=== PATIENT | female | born 1970 | race Caucasian/White ===

== ENCOUNTER 2019-06-13 13:17 | Observation (INO) | payer OTHER ==
--- OUTSIDE RECORDS SUMMARY | 2019-06-13 13:22 | XMS REPORT ---
:1970 [facility] [address] [place] [address] Care Team Providers Name Role Phone DR KLEVER MIRANDA Unavailable Unavailable NATALY, DR WINTER Lim Unavailable Unavailable KRISHNA, DR GANT Unavailable Unavailable CATALINA, DR MCCARTHY Unavailable Unavailable JORGE LUIS, DR GROSSMAN Unavailable Unavailable NATALY, DR DOE Unavailable Unavailable CARRIE, DR NUÑEZ Unavailable Unavailable EDEL, DR TATY Beltran Unavailable Unavailable Problems This patient has no known problems. Allergies, Adverse Reactions, Alerts This patient has no known allergies or adverse reactions. Medications This patient has no known medications. Encounters Start End Encounter Admission Attending Care Care Encounter Date/Time Date/Time Type Type Clinicians Facility Department ID 2018-01-10 Inpatient KLEVER GIVENS [facility] [id number] 12:30:00 2017-08-22 Inpatient KLEVER GIVENS [facility] [id number] 10:30:00 2019-03-09 2019-03-09 Emergency WINTER TORO [facility] [id number] 10:42:00 12:25:00 2018-12-04 2018-12-04 Outpatient Errol KELLER [facility] [id number] 09:00:00 09:00:00 STALIN 2018-07-30 2018-07-30 Outpatient Errol KELLER [facility] [id number] 07:59:00 10:30:00 STALIN 2018-05-26 2018-05-26 Emergency FABIO WADSWORTH [facility] [id number] 12:50:00 14:10:00 2018-04-24 2018-04-24 Outpatient Errol KANG [facility] [id number] 08:45:00 08:45:00 CHAUNCEY 2018-03-15 2018-03-15 Outpatient Errol KANG, [facility] [id number] 13:00:00 13:00:00 CHAUNCEY 2018-03-01 2018-03-01 Emergency E NADER INGRAM [facility] [id number] 14:10:00 16:00:00 2018-02-25 2018-02-28 Inpatient E CARRIE [facility] [id number] 22:17:00 14:15:00 JOAQUIN 2017-10-23 2017-10-23 Emergency E WINTER INGRAM [facility] [id number] 16:59:00 19:50:00 2017-10-17 2017-10-17 Outpatient C KLEVER MIRANDA [facility] [id number] 09:59:00 23:59:00 2017-10-16 2017-10-16 Outpatient KLEVER GIVENS [facility] [id number] 10:59:00 23:59:00 2017-10-12 2017-10-13 Outpatient E EDEL [facility] [id number] 13:06:00 18:54:00 MEHJABIN Results Test Description Test Time Test Comments Text Results Atomic Results Result Comments COMPREHENSIVE METABOLIC WALTON 2019-03-09 11:58:00 Test Item Value Reference Range Comments GLUCOSE (test code=06D) 101 mg/dL 75-100 SODIUM (test code=01A) 137 mmol/L 136-145 POTASSIUM (test code=01B) 4.4 mmol/L 3.6-5.1 CHLORIDE (test code=04A) 106 mmol/L 98-107 CO2 (test code=02A) 27 mmol/L 22-32 ANION GAP (test code=ANG) 8.4 mmol/L BUN (test code=05D) 9 mg/dL 7-18 CREATININE (test code=03E) 0.9 mg/dL 0.4-1.1 BUN/CREA (test code=BCR) 11 12-20 CALCIUM (test code=09D) 8.6 mg/dL 8.3-9.5 BILI TOTAL (test code=11A) 0.2 mg/dL 0.2-1.0 PROTEIN (test code=07D) 7.2 g/dL 6.4-8.2 ALBUMIN (test code=08D) 3.4 g/dL 3.5-4.8 GLOBULIN (test code=GLB) 3.8 g/dL 1.5-3.8 ALB/GLOB (test code=AGRR) 0.9 1.0-2.6 ALK PHOS (test code=35A) 76 IU/L 42-121 AST (test code=30A) 22 IU/L <=42 ALT (test code=31A) 29 IU/L <=78 [id number] 11:55:00 Test Item Value Reference Range Comments CPK (test code=32A) 275 IU/L 26-192 AMYLASE AND [id number] 11:55:00 Test Item Value Reference Range Comments AMYLASE (test code=10A) 32 U/L 28-100 LIPASE (test code=60A) 139 IU/L 73-393 TROPONIN [id number] 11:43:00 Test Item Value Reference Range Comments TROPONIN I (test code=A84) <0.015 ng/mL 0.000-0.045 DRUGS OF [id number] 11:40:00 Test Item Value Reference Range Comments DRUG SCRN (test code=HDOA) URINE DRUG SCREEN This is an unconfirmed screening result and should not be used for non-medical purposes CANNABINOD (test code=88C) Negative NEGATIVE AMPHETAMINE (test code=84A) Negative NEGATIVE BENZODIAZP (test code=86A) Negative NEGATIVE BARBITURAT (test code=85A) Negative NEGATIVE OPIATES (test code=92B) Negative NEGATIVE COCAINE (test code=87A) Negative NEGATIVE PHENCYCLID (test code=66A) Negative NEGATIVE METHADONE (test code=64A) Negative NEGATIVE DOAH (test code=DOAH.) URINE DRUG SCREEN Cut-off values are as follows: Cannabinoids 50 ng/mL Cocaine 300 ng/mL Amphetamines 1000 ng/mL Phencyclidine 25 ng/mL Benzodiazepines 200 ng.mL Methadone 300 ng/mL Barbiturates 200 ng/mL Opiates 2000 ng/mL SERUM [id number] 11:34:00 Test Item Value Reference Range Comments PREG SRM (test code=PGS) NEGATIVE NEGATIVE PRO TIME AND [id number] 11:33:00 Test Item Value Reference Range Comments PT (test code=TT) 11.2 s 9.8-13.6 INR (test code=INR) 1.0 INRH (test code=INRH) SUGGESTED THERAPEUTIC RANGE FOR INR: 2.5 - 3.5 For Patients with Prosthetic Valves or Patients with recurrent Thromboembolic Events 2.0 - 3.0 For Most Other Applications PTT (test code=PTT) 31.5 s 20.2-38.0 PTTH (test code=PTTH) To monitor the effectiveness of heparin, we offer the Anti-Xa (Heparin Assay). It can be used for either unfractionated or LMW Heparin. Order Code is ANTI-XA XR CHEST 1 VIEW [id number] 11:32:20EXAM: Portable chest x-rayDictation location: [id number]: Chest x-ray on 05/26/18INDICATION: chestpainDISCUSSION: Mild elevation of the right hemidiaphragm and linear scarring at the right lungbase is unchanged. No consolidation or pleural effusion is seen. Thecardiomediastinal silhouette is within normal limits. No acute bonyabnormalities are identified.IMPRESSION: No evidence of acute abnormality. There is unchanged mild elevationof the right hemidiaphragm and linear scarring at the right lung base.CBC (INCLUDES AUTOMATED DIFFERENTIAL)2019-03-09 11:26:00 Test Item Value Reference Range Comments WBC (test code=WBC) 8.6 10\S\3/uL 4.5-11.0 RBC (test code=RBC) 4.72 10\S\6/uL 4.20-5.60 HGB (test code=HBG) 13.1 g/dL 12.0-15.5 HCT (test code=HCT) 40.0 % 35.0-44.0 MCV (test code=MCV) 84.7 fL 81.0-99.0 MCH (test code=MCH) 27.8 pg 27.0-31.0 MCHC (test code=MCHC) 32.8 g/dL 32.0-36.0 RDW (test code=RDW) 14.6 % 11.5-14.5 PLT (test code=PLT) 268 10\S\3/uL 130-400 MPV (test code=MPV) 9.3 fL 9.4-12.4 NEUTROP # (test code=NE#) 4.4 10\S\3/uL 1.6-8.0 LYMPH # (test code=LY#) 2.7 10\S\3/uL 1.1-3.5 MONOCYTE # (test code=MO#) 0.9 10\S\3/uL 0.0-1.1 EOSINOPH # (test code=EO#) 0.5 10\S\3/uL 0.0-0.7 BASOPHIL # (test code=BA#) 0.1 10\S\3/uL 0.0-0.3 IG # (test code=IG#) 0.03 10\S\3/uL 0.00-0.06 NRBC # (test code=NRBC#) 0.00 10\S\3/uL 0.00-0.01 NEUTROPH % (test code=NE%) 51.1 % 35.0-73.0 LYMPH % (test code=LY%) 31.3 % 20.0-55.0 MONO % (test code=MO%) 10.9 % 2.5-10.0 EOSINOPH % (test code=EO%) 5.5 % 0.0-5.0 BASOPHIL % (test code=BA%) 0.8 % 0.0-2.0 IG % (test code=IG%) 0.4 % 0.0-0.8 NRBC% (test code=NRBC%) 0.0 % 0.0-0.2 MANDIFF (test code=MDIFF) NO NO RBC MORPH (test code=RBCMOR) NORMAL COMPREHENSIVE METABOLIC [id number] 09:42:00 Test Item Value Reference Range Comments GLUCOSE (test code=06D) 102 mg/dL 75-100 SODIUM (test code=01A) 140 mmol/L 136-145 POTASSIUM (test code=01B) 4.0 mmol/L 3.6-5.1 CHLORIDE (test code=04A) 110 mmol/L 98-107 CO2 (test code=02A) 21 mmol/L 22-32 ANION GAP (test code=ANG) 13.0 mmol/L BUN (test code=05D) 8 mg/dL 7-18 CREATININE (test code=03E) 0.7 mg/dL 0.4-1.1 BUN/CREA (test code=BCR) 12 12-20 CALCIUM (test code=09D) 8.9 mg/dL 8.3-9.5 BILI TOTAL (test code=11A) 0.3 mg/dL 0.2-1.0 PROTEIN (test code=07D) 7.4 g/dL 6.4-8.2 ALBUMIN (test code=08D) 3.6 g/dL 3.5-4.8 GLOBULIN (test code=GLB) 3.8 g/dL 1.5-3.8 ALB/GLOB (test code=AGRR) 0.9 1.0-2.6 ALK PHOS (test code=35A) 64 IU/L 42-121 AST (test code=30A) 22 IU/L <=42 ALT (test code=31A) 28 IU/L <=78 PRO TIME AND [id number] 09:37:00 Test Item Value Reference Range Comments PT (test code=TT) 11.4 s 9.8-13.6 INR (test code=INR) 1.0 INRH (test code=INRH) SUGGESTED THERAPEUTIC RANGE FOR INR: 2.5 - 3.5 For Patients with Prosthetic Valves or Patients with recurrent Thromboembolic Events 2.0 - 3.0 For Most Other Applications PTT (test code=PTT) 29.1 s 20.2-38.0 PTTH (test code=PTTH) To monitor the effectiveness of heparin, we offer the Anti-Xa (Heparin Assay). It can be used for either unfractionated or LMW Heparin. Order Code is ANTI-XA CBC (INCLUDES AUTOMATED DIFFERENTIAL)2018-07-30 09:29:00 Test Item Value Reference Range Comments WBC (test code=WBC) 7.7 10\S\3/uL 4.5-11.0 RBC (test code=RBC) 5.00 10\S\6/uL 4.20-5.60 HGB (test code=HBG) 13.9 g/dL 12.0-15.5 HCT (test code=HCT) 41.6 % 35.0-44.0 MCV (test code=MCV) 83.2 fL 81.0-99.0 MCH (test code=MCH) 27.8 pg 27.0-31.0 MCHC (test code=MCHC) 33.4 g/dL 32.0-36.0 RDW (test code=RDW) 14.8 % 11.5-14.5 PLT (test code=PLT) 272 10\S\3/uL 130-400 MPV (test code=MPV) 9.5 fL 9.4-12.4 NEUTROP # (test code=NE#) 4.4 10\S\3/uL 1.6-8.0 LYMPH # (test code=LY#) 2.4 10\S\3/uL 1.1-3.5 MONOCYTE # (test code=MO#) 0.6 10\S\3/uL 0.0-1.1 EOSINOPH # (test code=EO#) 0.2 10\S\3/uL 0.0-0.7 BASOPHIL # (test code=BA#) 0.1 10\S\3/uL 0.0-0.3 IG # (test code=IG#) 0.01 10\S\3/uL 0.00-0.06 NRBC # (test code=NRBC#) 0.00 10\S\3/uL 0.00-0.01 NEUTROPH % (test code=NE%) 57.3 % 35.0-73.0 LYMPH % (test code=LY%) 31.1 % 20.0-55.0 MONO % (test code=MO%) 7.6 % 2.5-10.0 EOSINOPH % (test code=EO%) 3.1 % 0.0-5.0 BASOPHIL % (test code=BA%) 0.8 % 0.0-2.0 IG % (test code=IG%) 0.1 % 0.0-0.8 NRBC% (test code=NRBC%) 0.0 % 0.0-0.2 MANDIFF (test code=MDIFF) NO NO RBC MORPH (test code=RBCMOR) NORMAL URINE [id number] 09:13:00 Test Item Value Reference Range Comments PREG UR (test code=PGU) NEGATIVE NEGATIVE BRAIN NATRIURETIC [id number] 13:43:00 Test Item Value Reference Range Comments proBNP (test code=PBNP) 155 pg/mL 0-125 AMYLASE AND [id number] 13:40:00 Test Item Value Reference Range Comments AMYLASE (test code=10A) 35 U/L 28-100 LIPASE (test code=60A) 197 IU/L 73-393 COMPREHENSIVE METABOLIC [id number] 13:40:00 Test Item Value Reference Range Comments GLUCOSE (test code=06D) 94 mg/dL 75-100 SODIUM (test code=01A) 137 mmol/L 136-145 POTASSIUM (test code=01B) 4.3 mmol/L 3.6-5.1 CHLORIDE (test code=04A) 108 mmol/L 98-107 CO2 (test code=02A) 23 mmol/L 22-32 ANION GAP (test code=ANG) 10.3 mmol/L BUN (test code=05D) 14 mg/dL 7-18 CREATININE (test code=03E) 0.8 mg/dL 0.4-1.1 BUN/CREA (test code=BCR) 17 12-20 CALCIUM (test code=09D) 8.6 mg/dL 8.3-9.5 BILI TOTAL (test code=11A) 0.4 mg/dL 0.2-1.0 PROTEIN (test code=07D) 7.4 g/dL 6.4-8.2 ALBUMIN (test code=08D) 3.3 g/dL 3.5-4.8 GLOBULIN (test code=GLB) 4.1 g/dL 1.5-3.8 ALB/GLOB (test code=AGRR) 0.8 1.0-2.6 ALK PHOS (test code=35A) 74 IU/L 42-121 AST (test code=30A) 28 IU/L <=42 ALT (test code=31A) 30 IU/L <=78 [id number] 13:40:00 Test Item Value Reference Range Comments CPK (test code=32A) 297 IU/L 26-192 TROPONIN [id number] 13:40:00 Test Item Value Reference Range Comments TROPONIN I (test code=A84) <0.015 ng/mL 0.000-0.045 XR CHEST 1 VIEW [id number] 13:35:17Location code: A 1Chest 1 viewIndication: Chest.Comparison: 09/26/17. 03/01/18.Findings:The cardiac silhouette is magnified. Mediastinal structures are undisplaced. Nopleural effusion. Small scarring at the right base unchanged since 09/26/17.Lungs otherwise clear. Bone is unremarkable.Impression: No evidence of acute pathology.PRO TIME AND [id number] 13:29:00 Test Item Value Reference Range Comments PT (test code=TT) 11.0 s 9.8-13.6 INR (test code=INR) 1.0 INRH (test code=INRH) SUGGESTED THERAPEUTIC RANGE FOR INR: 2.5 - 3.5 For Patients with Prosthetic Valves or Patients with recurrent Thromboembolic Events 2.0 - 3.0 For Most Other Applications PTT (test code=PTT) 26.7 s 20.2-38.0 PTTH (test code=PTTH) To monitor the effectiveness of heparin, we offer the Anti-Xa (Heparin Assay). It can be used for either unfractionated or LMW Heparin. Order Code is ANTI-XA SERUM [id number] 13:25:00 Test Item Value Reference Range Comments PREG SRM (test code=PGS) NEGATIVE NEGATIVE CBC (INCLUDES AUTOMATED DIFFERENTIAL)2018-05-26 13:19:00 Test Item Value Reference Range Comments WBC (test code=WBC) 8.5 10\S\3/uL 4.5-11.0 RBC (test code=RBC) 4.49 10\S\6/uL 4.20-5.60 HGB (test code=HBG) 12.6 g/dL 12.0-15.5 HCT (test code=HCT) 37.9 % 35.0-44.0 MCV (test code=MCV) 84.4 fL 81.0-99.0 MCH (test code=MCH) 28.1 pg 27.0-31.0 MCHC (test code=MCHC) 33.2 g/dL 32.0-36.0 RDW (test code=RDW) 13.9 % 11.5-14.5 PLT (test code=PLT) 270 10\S\3/uL 130-400 MPV (test code=MPV) 9.5 fL 9.4-12.4 NEUTROP # (test code=NE#) 4.8 10\S\3/uL 1.6-8.0 LYMPH # (test code=LY#) 2.7 10\S\3/uL 1.1-3.5 MONOCYTE # (test code=MO#) 0.7 10\S\3/uL 0.0-1.1 EOSINOPH # (test code=EO#) 0.2 10\S\3/uL 0.0-0.7 BASOPHIL # (test code=BA#) 0.1 10\S\3/uL 0.0-0.3 IG # (test code=IG#) 0.02 10\S\3/uL 0.00-0.06 NRBC # (test code=NRBC#) 0.00 10\S\3/uL 0.00-0.01 NEUTROPH % (test code=NE%) 56.9 % 35.0-73.0 LYMPH % (test code=LY%) 31.8 % 20.0-55.0 MONO % (test code=MO%) 7.9 % 2.5-10.0 EOSINOPH % (test code=EO%) 2.4 % 0.0-5.0 BASOPHIL % (test code=BA%) 0.8 % 0.0-2.0 IG % (test code=IG%) 0.2 % 0.0-0.8 NRBC% (test code=NRBC%) 0.0 % 0.0-0.2 MANDIFF (test code=MDIFF) NO NO RBC MORPH (test code=RBCMOR) NORMAL BRAIN NATRIURETIC [id number] 15:06:00 Test Item Value Reference Range Comments proBNP (test code=PBNP) 448 pg/mL 0-125 CARDIAC [id number] 15:04:00 Test Item Value Reference Range Comments TROPONIN I (test code=A84) <0.015 ng/mL 0.000-0.045 CKMB (test code=A49) 2.9 ng/mL <=3.6 CPK (test code=32A) 180 IU/L 26-192 COMPREHENSIVE METABOLIC [id number] 15:02:00 Test Item Value Reference Range Comments GLUCOSE (test code=06D) 86 mg/dL 75-100 SODIUM (test code=01A) 135 mmol/L 136-145 POTASSIUM (test code=01B) 3.9 mmol/L 3.6-5.1 CHLORIDE (test code=04A) 102 mmol/L 98-107 CO2 (test code=02A) 23 mmol/L 22-32 ANION GAP (test code=ANG) 13.9 mmol/L BUN (test code=05D) 10 mg/dL 7-18 CREATININE (test code=03E) 0.7 mg/dL 0.4-1.1 BUN/CREA (test code=BCR) 15 12-20 CALCIUM (test code=09D) 8.9 mg/dL 8.3-9.5 BILI TOTAL (test code=11A) 0.3 mg/dL 0.2-1.0 PROTEIN (test code=07D) 7.5 g/dL 6.4-8.2 ALBUMIN (test code=08D) 3.7 g/dL 3.5-4.8 GLOBULIN (test code=GLB) 3.8 g/dL 1.5-3.8 ALB/GLOB (test code=AGRR) 1.0 1.0-2.6 ALK PHOS (test code=35A) 79 IU/L 42-121 AST (test code=30A) 14 IU/L <=42 ALT (test code=31A) 28 IU/L <=78 PRO TIME AND [id number] 14:53:00 Test Item Value Reference Range Comments PT (test code=TT) 11.5 s 9.8-13.6 INR (test code=INR) 1.0 INRH (test code=INRH) SUGGESTED THERAPEUTIC RANGE FOR INR: 2.5 - 3.5 For Patients with Prosthetic Valves or Patients with recurrent Thromboembolic Events 2.0 - 3.0 For Most Other Applications PTT (test code=PTT) 26.5 s 20.2-38.0 PTTH (test code=PTTH) To monitor the effectiveness of heparin, we offer the Anti-Xa (Heparin Assay). It can be used for either unfractionated or LMW Heparin. Order Code is ANTI-XA CBC (INCLUDES AUTOMATED DIFFERENTIAL)2018-03-01 14:45:00 Test Item Value Reference Range Comments WBC (test code=WBC) 10.8 10\S\3/uL 4.5-11.0 RBC (test code=RBC) 4.90 10\S\6/uL 4.20-5.60 HGB (test code=HBG) 14.1 g/dL 12.0-15.5 HCT (test code=HCT) 42.0 % 35.0-44.0 MCV (test code=MCV) 85.7 fL 81.0-99.0 MCH (test code=MCH) 28.8 pg 27.0-31.0 MCHC (test code=MCHC) 33.6 g/dL 32.0-36.0 RDW (test code=RDW) 13.1 % 11.5-14.5 PLT (test code=PLT) 250 10\S\3/uL 130-400 MPV (test code=MPV) 9.4 fL 9.4-12.4 NEUTROP # (test code=NE#) 6.4 10\S\3/uL 1.6-8.0 LYMPH # (test code=LY#) 3.1 10\S\3/uL 1.1-3.5 MONOCYTE # (test code=MO#) 0.9 10\S\3/uL 0.0-1.1 EOSINOPH # (test code=EO#) 0.2 10\S\3/uL 0.0-0.7 BASOPHIL # (test code=BA#) 0.1 10\S\3/uL 0.0-0.3 IG # (test code=IG#) 0.03 10\S\3/uL 0.00-0.06 NRBC # (test code=NRBC#) 0.00 10\S\3/uL 0.00-0.01 NEUTROPH % (test code=NE%) 59.6 % 35.0-73.0 LYMPH % (test code=LY%) 28.9 % 20.0-55.0 MONO % (test code=MO%) 8.5 % 2.5-10.0 EOSINOPH % (test code=EO%) 2.0 % 0.0-5.0 BASOPHIL % (test code=BA%) 0.7 % 0.0-2.0 IG % (test code=IG%) 0.3 % 0.0-0.8 NRBC% (test code=NRBC%) 0.0 % 0.0-0.2 MANDIFF (test code=MDIFF) NO NO RBC MORPH (test code=RBCMOR) NORMAL XR CHEST 1 VIEW [id number] 14:38:19Portable AP chest, 1 viewLocation Code: [id number] HISTORY: Chest painCOMPARISON: CT dated 02/26/2018 02/25/2018, 10/23/2017COMMENT: Mild atelectasis versus scarring within the right lung base is stable. Leftchest is clear. The cardiomediastinal silhouette is stable. The bones areintact.IMPRESSION: Stable chest with no acute abnormalityBASIC METABOLIC [id number] 05:24:00 Test Item Value Reference Range Comments GLUCOSE (test code=06D) 87 mg/dL 75-100 SODIUM (test code=01A) 138 mmol/L 136-145 POTASSIUM (test code=01B) 4.0 mmol/L 3.6-5.1 CHLORIDE (test code=04A) 109 mmol/L 98-107 CO2 (test code=02A) 23 mmol/L 22-32 ANION GAP (test code=ANG) 10.0 mmol/L BUN (test code=05D) 12 mg/dL 7-18 CREATININE (test code=03E) 0.7 mg/dL 0.4-1.1 BUN/CREA (test code=BCR) 17 12-20 CALCIUM (test code=09D) 7.8 mg/dL 8.3-9.5 CBC (INCLUDES AUTOMATED DIFFERENTIAL)2018-02-28 05:07:00 Test Item Value Reference Range Comments WBC (test code=WBC) 10.9 10\S\3/uL 4.5-11.0 RBC (test code=RBC) 4.27 10\S\6/uL 4.20-5.60 HGB (test code=HBG) 12.4 g/dL 12.0-15.5 HCT (test code=HCT) 37.4 % 35.0-44.0 MCV (test code=MCV) 87.6 fL 81.0-99.0 MCH (test code=MCH) 29.0 pg 27.0-31.0 MCHC (test code=MCHC) 33.2 g/dL 32.0-36.0 RDW (test code=RDW) 13.2 % 11.5-14.5 PLT (test code=PLT) 203 10\S\3/uL 130-400 MPV (test code=MPV) 9.5 fL 9.4-12.4 NEUTROP # (test code=NE#) 6.6 10\S\3/uL 1.6-8.0 LYMPH # (test code=LY#) 2.9 10\S\3/uL 1.1-3.5 MONOCYTE # (test code=MO#) 1.0 10\S\3/uL 0.0-1.1 EOSINOPH # (test code=EO#) 0.3 10\S\3/uL 0.0-0.7 BASOPHIL # (test code=BA#) 0.1 10\S\3/uL 0.0-0.3 IG # (test code=IG#) 0.04 10\S\3/uL 0.00-0.06 NRBC # (test code=NRBC#) 0.00 10\S\3/uL 0.00-0.01 NEUTROPH % (test code=NE%) 60.8 % 35.0-73.0 LYMPH % (test code=LY%) 26.4 % 20.0-55.0 MONO % (test code=MO%) 9.0 % 2.5-10.0 EOSINOPH % (test code=EO%) 2.8 % 0.0-5.0 BASOPHIL % (test code=BA%) 0.6 % 0.0-2.0 IG % (test code=IG%) 0.4 % 0.0-0.8 NRBC% (test code=NRBC%) 0.0 % 0.0-0.2 MANDIFF (test code=MDIFF) NO NO RBC MORPH (test code=RBCMOR) NORMAL CARDIAC [id number] 16:26:00 Test Item Value Reference Range Comments TROPONIN I (test code=A84) 0.158 ng/mL 0.000-0.045 CKMB (test code=A49) 3.1 ng/mL <=3.6 CPK (test code=32A) 177 IU/L 26-192 THYROID PANEL/SCREEN (TSH)2018-02-26 12:29:00 Test Item Value Reference Range Comments TSH (test code=A57) 0.878 uIU/mL 0.358-3.740 [id number] 12:14:00 Test Item Value Reference Range Comments Hb A1C % (test code=HBA) 5.3 % 4.2-6.3 BASIC METABOLIC [id number] 12:05:00 Test Item Value Reference Range Comments GLUCOSE (test code=06D) 124 mg/dL 75-100 SODIUM (test code=01A) 136 mmol/L 136-145 POTASSIUM (test code=01B) 4.1 mmol/L 3.6-5.1 CHLORIDE (test code=04A) 106 mmol/L 98-107 CO2 (test code=02A) 22 mmol/L 22-32 ANION GAP (test code=ANG) 12.1 mmol/L BUN (test code=05D) 9 mg/dL 7-18 CREATININE (test code=03E) 0.7 mg/dL 0.4-1.1 BUN/CREA (test code=BCR) 13 12-20 CALCIUM (test code=09D) 8.1 mg/dL 8.3-9.5 LIPID [id number] 12:02:00 Test Item Value Reference Range Comments CHOLESTROL (test code=44A) 236 mg/dL 140-200 TRIGLYCERI (test code=42B) 342 mg/dL <=149 HDL (test code=83D) 38.0 mg/dL 40.0-60.0 LDL (test code=34B) 161 mg/dL <=99 CHL/HDL (test code=CHR) 6.2 0.0-3.4 CBC (INCLUDES AUTOMATED DIFFERENTIAL)2018-02-26 11:53:00 Test Item Value Reference Range Comments WBC (test code=WBC) 10.7 10\S\3/uL 4.5-11.0 RBC (test code=RBC) 4.35 10\S\6/uL 4.20-5.60 HGB (test code=HBG) 12.6 g/dL 12.0-15.5 HCT (test code=HCT) 38.8 % 35.0-44.0 MCV (test code=MCV) 89.2 fL 81.0-99.0 MCH (test code=MCH) 29.0 pg 27.0-31.0 MCHC (test code=MCHC) 32.5 g/dL 32.0-36.0 RDW (test code=RDW) 13.4 % 11.5-14.5 PLT (test code=PLT) 227 10\S\3/uL 130-400 MPV (test code=MPV) 9.5 fL 9.4-12.4 NEUTROP # (test code=NE#) 6.8 10\S\3/uL 1.6-8.0 LYMPH # (test code=LY#) 2.9 10\S\3/uL 1.1-3.5 MONOCYTE # (test code=MO#) 0.7 10\S\3/uL 0.0-1.1 EOSINOPH # (test code=EO#) 0.3 10\S\3/uL 0.0-0.7 BASOPHIL # (test code=BA#) 0.1 10\S\3/uL 0.0-0.3 IG # (test code=IG#) 0.02 10\S\3/uL 0.00-0.06 NRBC # (test code=NRBC#) 0.00 10\S\3/uL 0.00-0.01 NEUTROPH % (test code=NE%) 63.2 % 35.0-73.0 LYMPH % (test code=LY%) 27.0 % 20.0-55.0 MONO % (test code=MO%) 6.6 % 2.5-10.0 EOSINOPH % (test code=EO%) 2.4 % 0.0-5.0 BASOPHIL % (test code=BA%) 0.6 % 0.0-2.0 IG % (test code=IG%) 0.2 % 0.0-0.8 NRBC% (test code=NRBC%) 0.0 % 0.0-0.2 MANDIFF (test code=MDIFF) NO NO RBC MORPH (test code=RBCMOR) NORMAL CARDIAC [id number] 05:57:00 Test Item Value Reference Range Comments TROPONIN I (test code=A84) 0.341 ng/mL 0.000-0.045 CKMB (test code=A49) 2.7 ng/mL <=3.6 CPK (test code=32A) 154 IU/L 26-192 CT PE [id number] 00:34:43AFTER HOURS SERVICE ON: 02/26/2018 12:30 AMCT Scan of the Chest With ContrastLocation Code [id number]: Chest painTechnique: Scans were performed on a helical scanner post IV contrast. Coronaland sagittal reconstructions were performed. One or more of the following dose reduction techniques were used: Automatedexposure control, adjustment of the mA and/or kV according to patient size,and/orutilization of iterative reconstruction technique.FINDINGS: Contrast in the pulmonary arteries is suboptimal. No large central or saddleembolus is seen in the pulmonary trunk. No aortic aneurysm or dissection seen. No cardiomegaly. No pericardial effusion.Mild scarring noted in the right upper lobe and right middle lobe. Lungs areotherwise clear.There is a 1.1 cm left thyroid nodule similar to the prior of 10/12/17.IMPRESSION:1. Limited contrast bolus in the pulmonary arteries. No large saddle embolismis seen.2. No acute pulmonary findings.3. 11 mm left thyroid nodule. This can be further evaluated with ultrasound.BRAIN NATRIURETIC [id number] 23:25:00 Test Item Value Reference Range Comments proBNP (test code=PBNP) 287 pg/mL 0-125 COMPREHENSIVE METABOLIC [id number] 23:21:00 Test Item Value Reference Range Comments GLUCOSE (test code=06D) 91 mg/dL 75-100 SODIUM (test code=01A) 138 mmol/L 136-145 POTASSIUM (test code=01B) 4.1 mmol/L 3.6-5.1 CHLORIDE (test code=04A) 106 mmol/L 98-107 CO2 (test code=02A) 24 mmol/L 22-32 ANION GAP (test code=ANG) 12.1 mmol/L BUN (test code=05D) 10 mg/dL 7-18 CREATININE (test code=03E) 0.7 mg/dL 0.4-1.1 BUN/CREA (test code=BCR) 15 12-20 CALCIUM (test code=09D) 8.6 mg/dL 8.3-9.5 BILI TOTAL (test code=11A) 0.1 mg/dL 0.2-1.0 PROTEIN (test code=07D) 6.5 g/dL 6.4-8.2 ALBUMIN (test code=08D) 3.3 g/dL 3.5-4.8 GLOBULIN (test code=GLB) 3.2 g/dL 1.5-3.8 ALB/GLOB (test code=AGRR) 1.0 1.0-2.6 ALK PHOS (test code=35A) 77 IU/L 42-121 AST (test code=30A) 18 IU/L <=42 ALT (test code=31A) 26 IU/L <=78 CARDIAC [id number] 23:21:00 Test Item Value Reference Range Comments TROPONIN I (test code=A84) 0.358 ng/mL 0.000-0.045 CKMB (test code=A49) 3.6 ng/mL <=3.6 CPK (test code=32A) 205 IU/L 26-192 [id number] 23:19:00 Test Item Value Reference Range Comments D-DIMER (test code=DDI) 293 ng/mL D-DU 0-234 D-DIMER COMMENT (test *Level to rule out DVT or PE: code=DDCOM) <235 ng/mL D-DU* PRO TIME AND [id number] 23:18:00 Test Item Value Reference Range Comments PT (test code=TT) 10.5 s 9.8-13.6 INR (test code=INR) 0.9 INRH (test code=INRH) SUGGESTED THERAPEUTIC RANGE FOR INR: 2.5 - 3.5 For Patients with Prosthetic Valves or Patients with recurrent Thromboembolic Events 2.0 - 3.0 For Most Other Applications PTT (test code=PTT) 26.7 s 20.2-38.0 PTTH (test code=PTTH) To monitor the effectiveness of heparin, we offer the Anti-Xa (Heparin Assay). It can be used for either unfractionated or LMW Heparin. Order Code is ANTI-XA XR CHEST 1 VIEW [id number] 23:05:48LOCATION: V20 EXAM: XR CHEST 1 VIEW PORTABLEHISTORY: [id number]: Chest pain TECHNIQUE: Frontal view ofthe chest.COMPARISON: 10/23/2017FINDINGS:The lungs are well inflated. Stable linear atelectasis or scar in the rightlung base. The lungs are otherwise clear. No evidence of pneumothorax orpleural effusion. The heart is normal in size. The mediastinal contours are unremarkable. Osseous structures areintact. IMPRESSION:Stable linear atelectasis or scar in the right lung base. No evidence of acute cardiac pulmonary disease.CBC (INCLUDES AUTOMATED DIFFERENTIAL )2018-02-25 23:04:00 Test Item Value Reference Range Comments WBC (test code=WBC) 9.3 10\S\3/uL 4.5-11.0 RBC (test code=RBC) 4.43 10\S\6/uL 4.20-5.60 HGB (test code=HBG) 12.9 g/dL 12.0-15.5 HCT (test code=HCT) 38.7 % 35.0-44.0 MCV (test code=MCV) 87.4 fL 81.0-99.0 MCH (test code=MCH) 29.1 pg 27.0-31.0 MCHC (test code=MCHC) 33.3 g/dL 32.0-36.0 RDW (test code=RDW) 13.4 % 11.5-14.5 PLT (test code=PLT) 227 10\S\3/uL 130-400 MPV (test code=MPV) 9.5 fL 9.4-12.4 NEUTROP # (test code=NE#) 4.8 10\S\3/uL 1.6-8.0 LYMPH # (test code=LY#) 3.3 10\S\3/uL 1.1-3.5 MONOCYTE # (test code=MO#) 0.8 10\S\3/uL 0.0-1.1 EOSINOPH # (test code=EO#) 0.4 10\S\3/uL 0.0-0.7 BASOPHIL # (test code=BA#) 0.1 10\S\3/uL 0.0-0.3 IG # (test code=IG#) 0.03 10\S\3/uL 0.00-0.06 NRBC # (test code=NRBC#) 0.00 10\S\3/uL 0.00-0.01 NEUTROPH % (test code=NE%) 51.4 % 35.0-73.0 LYMPH % (test code=LY%) 35.3 % 20.0-55.0 MONO % (test code=MO%) 8.3 % 2.5-10.0 EOSINOPH % (test code=EO%) 3.8 % 0.0-5.0 BASOPHIL % (test code=BA%) 0.9 % 0.0-2.0 IG % (test code=IG%) 0.3 % 0.0-0.8 NRBC% (test code=NRBC%) 0.0 % 0.0-0.2 MANDIFF (test code=MDIFF) NO NO RBC MORPH (test code=RBCMOR) NORMAL CARDIAC [id number] 18:52:00 Test Item Value Reference Range Comments TROPONIN I (test code=A84) <0.015 ng/mL 0.000-0.045 CKMB (test code=A49) 3.4 ng/mL <=3.6 CPK (test code=32A) 206 IU/L 26-192 BRAIN NATRIURETIC [id number] 18:50:00 Test Item Value Reference Range Comments proBNP (test code=PBNP) 178 pg/mL 0-125 AMYLASE AND [id number] 18:50:00 Test Item Value Reference Range Comments AMYLASE (test code=10A) 36 U/L 28-100 LIPASE (test code=60A) 208 IU/L 73-393 COMPREHENSIVE METABOLIC [id number] 18:50:00 Test Item Value Reference Range Comments GLUCOSE (test code=06D) 88 mg/dL 75-100 SODIUM (test code=01A) 138 mmol/L 136-145 POTASSIUM (test code=01B) 4.3 mmol/L 3.6-5.1 CHLORIDE (test code=04A) 106 mmol/L 98-107 CO2 (test code=02A) 25 mmol/L 22-32 ANION GAP (test code=ANG) 11.3 mmol/L BUN (test code=05D) 10 mg/dL 7-18 CREATININE (test code=03E) 0.8 mg/dL 0.4-1.1 BUN/CREA (test code=BCR) 13 12-20 CALCIUM (test code=09D) 8.4 mg/dL 8.3-9.5 BILI TOTAL (test code=11A) 0.2 mg/dL 0.2-1.0 PROTEIN (test code=07D) 7.2 g/dL 6.4-8.2 ALBUMIN (test code=08D) 3.5 g/dL 3.5-4.8 GLOBULIN (test code=GLB) 3.7 g/dL 1.5-3.8 ALB/GLOB (test code=AGRR) 0.9 1.0-2.6 ALK PHOS (test code=35A) 81 IU/L 42-121 AST (test code=30A) 19 IU/L <=42 ALT (test code=31A) 29 IU/L <=78 SERUM [id number] 18:43:00 Test Item Value Reference Range Comments PREG SRM (test code=PGS) NEGATIVE NEGATIVE PRO TIME AND [id number] 18:41:00 Test Item Value Reference Range Comments PT (test code=TT) 11.2 s 9.8-13.6 INR (test code=INR) 1.0 INRH (test code=INRH) SUGGESTED THERAPEUTIC RANGE FOR INR: 2.5 - 3.5 For Patients with Prosthetic Valves or Patients with recurrent Thromboembolic Events 2.0 - 3.0 For Most Other Applications PTT (test code=PTT) 27.3 s 20.2-38.0 PTTH (test code=PTTH) To monitor the effectiveness of heparin, we offer the Anti-Xa (Heparin Assay). It can be used for either unfractionated or LMW Heparin. Order Code is ANTI-XA URINALYSIS WITH [id number] 18:41:00 Test Item Value Reference Range Comments COLOR (test code=COLU) YELLOW YELLOW CLARITY (test code=CLA) HAZY CLEAR GLUCOSE UR (test code=UA GLUCOSE) NEGATIVE NEGATIVE BILI UR (test code=BILE) NEGATIVE NEGATIVE KETONES UR (test code=MARY) TRACE NEGATIVE SP GRAVITY (test code=SPGR) 1.028 1.005-1.030 PH UR (test code=PH) 6.5 4.5-8.0 PROTEIN UR (test code=PU) TRACE NEGATIVE UROBIL UR (test code=UROQ) 1.0 EU/dL 0.2-1.0 NITRITE UR (test code=NITRITE) NEGATIVE NEGATIVE BLOOD UR (test code=UA BLOOD) NEGATIVE NEGATIVE LEUK ES UR (test code=LEUK) NEGATIVE NEGATIVE WBC UR (test code=UWBC) 1 /HPF 0-5 RBC UR (test code=URBC) 0 /HPF 0-2 EPITH UR (test code=UEPC) MODERATE /LPF FEW BACTERIA UR (test code=UBACT) MODERATE /HPF NONE CAST UR (test code=CAST) /LPF NONE CRYSTAL UR (test code=CRYU) / LPF NONE MUCUS UR (test code=MUC) / HPF NONE AMORPH UR (test code=ALLEN) / HPF NONE TRICH UR (test code=UTRICH) /HPF NONE YEAST UR (test code=UY) /HPF NONE SPERM UR (test code=USPERM) /HPF NONE CBC (INCLUDES AUTOMATED DIFFERENTIAL)2017-10-23 18:35:00 Test Item Value Reference Range Comments WBC (test code=WBC) 8.9 10\S\3/uL 4.5-11.0 RBC (test code=RBC) 4.46 10\S\6/uL 4.20-5.60 HGB (test code=HBG) 13.1 g/dL 12.0-15.5 HCT (test code=HCT) 38.8 % 35.0-44.0 MCV (test code=MCV) 87.0 fL 81.0-99.0 MCH (test code=MCH) 29.4 pg 27.0-31.0 MCHC (test code=MCHC) 33.8 g/dL 32.0-36.0 RDW (test code=RDW) 13.7 % 11.5-14.5 PLT (test code=PLT) 231 10\S\3/uL 130-400 MPV (test code=MPV) 9.9 fL 9.4-12.4 NEUTROP # (test code=NE#) 4.5 10\S\3/uL 1.6-8.0 LYMPH # (test code=LY#) 3.4 10\S\3/uL 1.1-3.5 MONOCYTE # (test code=MO#) 0.7 10\S\3/uL 0.0-1.1 EOSINOPH # (test code=EO#) 0.3 10\S\3/uL 0.0-0.7 BASOPHIL # (test code=BA#) 0.1 10\S\3/uL 0.0-0.3 IG # (test code=IG#) 0.03 10\S\3/uL 0.00-0.06 NRBC # (test code=NRBC#) 0.00 10\S\3/uL 0.00-0.01 NEUTROPH % (test code=NE%) 50.4 % 35.0-73.0 LYMPH % (test code=LY%) 38.2 % 20.0-55.0 MONO % (test code=MO%) 7.4 % 2.5-10.0 EOSINOPH % (test code=EO%) 2.9 % 0.0-5.0 BASOPHIL % (test code=BA%) 0.8 % 0.0-2.0 IG % (test code=IG%) 0.3 % 0.0-0.8 NRBC% (test code=NRBC%) 0.0 % 0.0-0.2 MANDIFF (test code=MDIFF) NO NO XR CHEST 1 VIEW [id number] 17:58:39STUDY: Chest radiographHISTORY: Chest pain.COMPARISON: 10/12/17TECHNIQUE: Frontal view of the chest.LOCATION: [id number]:An electronic device projects over the left chest, not seen previously.The cardiac silhouette is unremarkable. Again seen is a curvilinear density atthe right lung base with tentingof the right hemidiaphragm. There is nopleural effusion, pneumothorax or focal consolidation.No acute osseous abnormalities are identified.IMPRESSION:1. No radiographic evidence for acute pulmonary abnormality.2. Similar appearance of right basilar atelectasis/ fibrosis.BASIC METABOLIC [id number] 04:08:00 Test Item Value Reference Range Comments GLUCOSE (test code=06D) 101 mg/dL 75-100 SODIUM (test code=01A) 138 mmol/L 136-145 POTASSIUM (test code=01B) 3.9 mmol/L 3.6-5.1 CHLORIDE (test code=04A) 111 mmol/L 98-107 CO2 (test code=02A) 23 mmol/L 22-32 ANION GAP (test code=ANG) 7.9 mmol/L BUN (test code=05D) 14 mg/dL 7-18 CREATININE (test code=03E) 0.6 mg/dL 0.4-1.1 BUN/CREA (test code=BCR) 23 12-20 CALCIUM (test code=09D) 8.3 mg/dL 8.3-9.5 CBC (INCLUDES AUTOMATED DIFFERENTIAL)2017-10-13 03:56:00 Test Item Value Reference Range Comments WBC (test code=WBC) 7.1 10\S\3/uL 4.5-11.0 RBC (test code=RBC) 4.50 10\S\6/uL 4.20-5.60 HGB (test code=HBG) 13.3 g/dL 12.0-15.5 HCT (test code=HCT) 39.4 % 35.0-44.0 MCV (test code=MCV) 87.6 fL 81.0-99.0 MCH (test code=MCH) 29.6 pg 27.0-31.0 MCHC (test code=MCHC) 33.8 g/dL 32.0-36.0 RDW (test code=RDW) 13.8 % 11.5-14.5 PLT (test code=PLT) 214 10\S\3/uL 130-400 MPV (test code=MPV) 10.1 fL 9.4-12.4 NEUTROP # (test code=NE#) 3.2 10\S\3/uL 1.6-8.0 LYMPH # (test code=LY#) 2.8 10\S\3/uL 1.1-3.5 MONOCYTE # (test code=MO#) 0.8 10\S\3/uL 0.0-1.1 EOSINOPH # (test code=EO#) 0.2 10\S\3/uL 0.0-0.7 BASOPHIL # (test code=BA#) 0.1 10\S\3/uL 0.0-0.3 IG # (test code=IG#) 0.03 10\S\3/uL 0.00-0.06 NRBC # (test code=NRBC#) 0.00 10\S\3/uL 0.00-0.01 NEUTROPH % (test code=NE%) 45.0 % 35.0-73.0 LYMPH % (test code=LY%) 39.7 % 20.0-55.0 MONO % (test code=MO%) 11.1 % 2.5-10.0 EOSINOPH % (test code=EO%) 3.0 % 0.0-5.0 BASOPHIL % (test code=BA%) 0.8 % 0.0-2.0 IG % (test code=IG%) 0.4 % 0.0-0.8 NRBC% (test code=NRBC%) 0.0 % 0.0-0.2 MANDIFF (test code=MDIFF) NO NO RBC MORPH (test code=RBCMOR) NORMAL CARDIAC [id number] 23:12:00 Test Item Value Reference Range Comments TROPONIN I (test code=A84) <0.015 ng/mL 0.000-0.045 CKMB (test code=A49) 3.7 ng/mL <=3.6 CPK (test code=32A) 192 IU/L 26-192 CARDIAC [id number] 15:14:00 Test Item Value Reference Range Comments TROPONIN I (test code=A84) <0.015 ng/mL 0.000-0.045 CKMB (test code=A49) 4.4 ng/mL <=3.6 CPK (test code=32A) 208 IU/L -192 CT PE [id number] 09:57:42CT CHEST WITH CONTRAST, PE PROTOCOL:Location code: [id number] HISTORY: Shortness of breath , chest painCOMPARISON: Chest x- ray from earlier the same dayTECHNIQUE: Following the administration of a timed IV contrast bolus, helicalCT of the chest was performed. Thin section axial, coronal, and sagittalimages were obtained. Oblique sagittal maximum intensity reformatted images ofthe pulmonary arteries were also obtained. One or more of the following dosereduction techniques were used: Automated exposure control, adjustment of themA and or KV according to patient size, and/or utilization of iterativereconstruction technique. DLP: 755 mGy-cm.FINDINGS: There is no filling defect within the pulmonary arteries to suggest pulmonaryembolus. The aorta is of normal caliber and contour. Mild congestionand interstitial prominence, particularly in the right middlelobe and right lung base suggestive of underlying interstitial fibrosis versusatelectasis. No evidence of layering effusion. No worrisome pulmonary nodulesnoted.There is no mediastinal adenopathy or mass. There is no pericardial effusion. Images through the upper abdomen are unremarkable.The bones, skin and surrounding soft tissues are unremarkable. IMPRESSION:1. Negative for PE2. Mild congestion as well as atelectasis or fibrosis in theright lower lobeand right lung base. URINE [id number] 09: 21:00 Test Item Value Reference Range Comments PREG UR (test code=PGU) NEGATIVE NEGATIVE CARDIAC [id number] 09:00:00 Test Item Value Reference Range Comments TROPONIN I (test code=A84) <0.015 ng/mL 0.000-0.045 CKMB (test code=A49) 5.4 ng/mL <=3.6 CPK (test code=32A) 238 IU/L 26-192 DRUGS OF [id number] 08:58:00 Test Item Value Reference Range Comments DRUG SCRN (test code=HDOA) URINE DRUG SCREEN This is an unconfirmed screening result and should not be used for non-medical purposes CANNABINOD (test code=88C) Negative NEGATIVE AMPHETAMINE (test code=84A) Negative NEGATIVE BENZODIAZP (test code=86A) Negative NEGATIVE BARBITURAT (test code=85A) Negative NEGATIVE OPIATES (test code=92B) Negative NEGATIVE COCAINE (test code=87A) Negative NEGATIVE PHENCYCLID (test code=66A) Negative NEGATIVE METHADONE (test code=64A) Negative NEGATIVE DOAH (test code=DOAH) URINE DRUG SCREEN Cut-off values are as follows: ---- Cannabinoids 50 ng/mL Cocaine 300 ng/mL Amphetamines 1000 ng/mL Phencyclidine 25 ng/mL Benzodiazepines 200 ng.mL Methadone 300 ng/mL Barbiturates 200 ng/mL Opiates 2000 ng/mL [id number] 08:56:00 Test Item Value Reference Range Comments D-DIMER (test code=DDI) 475 ng/mL D-DU 0-234 D-DIMER COMMENT (test *Level to rule out DVT or PE: code=DDCOM) <235 ng/mL D-DU* COMPREHENSIVE METABOLIC [id number] 08:56:00 Test Item Value Reference Range Comments GLUCOSE (test code=06D) 97 mg/dL 75-100 SODIUM (test code=01A) 137 mmol/L 136-145 POTASSIUM (test code=01B) 3.5 mmol/L 3.6-5.1 CHLORIDE (test code=04A) 107 mmol/L 98-107 CO2 (test code=02A) 22 mmol/L 22-32 ANION GAP (test code=ANG) 11.5 mmol/L BUN (test code=05D) 8 mg/dL 7-18 CREATININE (test code=03E) 0.7 mg/dL 0.4-1.1 BUN/CREA (test code=BCR) 12 12-20 CALCIUM (test code=09D) 8.5 mg/dL 8.3-9.5 BILI TOTAL (test code=11A) 0.2 mg/dL 0.2-1.0 PROTEIN (test code=07D) 7.4 g/dL 6.4-8.2 ALBUMIN (test code=08D) 3.6 g/dL 3.5-4.8 GLOBULIN (test code=GLB) 3.8 g/dL 1.5-3.8 ALB/GLOB (test code=AGRR) 0.9 1.0-2.6 ALK PHOS (test code=35A) 79 IU/L 42-121 AST (test code=30A) 19 IU/L <=42 ALT (test code=31A) 30 IU/L <=78 [id number] 08:53:00 Test Item Value Reference Range Comments COLOR (test code=COLU) YELLOW YELLOW CLARITY (test code=CLA) CLEAR CLEAR GLUCOSE UR (test code=UA GLUCOSE) NEGATIVE NEGATIVE BILI UR (test code=BILE) NEGATIVE NEGATIVE KETONES UR (test code=MARY) NEGATIVE NEGATIVE SP GRAVITY (test code=SPGR) 1.012 1.005-1.030 PH UR (test code=PH) 7.0 4.5-8.0 PROTEIN UR (test code=PU) NEGATIVE NEGATIVE UROBIL UR (test code=UROQ) 0.2 EU/dL 0.2-1.0 NITRITE UR (test code=NITRITE) NEGATIVE NEGATIVE BLOOD UR (test code=UA BLOOD) NEGATIVE NEGATIVE LEUK ES UR (test code=LEUK) NEGATIVE NEGATIVE PRO TIME AND [id number] 08:48:00 Test Item Value Reference Range Comments PT (test code=TT) 11.0 s 9.8-13.6 INR (test code=INR) 1.0 INRH (test code=INRH) SUGGESTED THERAPEUTIC RANGE FOR INR: 2.5 - 3.5 For Patients with Prosthetic Valves or Patients with recurrent Thromboembolic Events 2.0 - 3.0 For Most Other Applications PTT (test code=PTT) 24.8 s 20.2-38.0 PTTH (test code=PTTH) To monitor the effectiveness of heparin, we offer the Anti-Xa (Heparin Assay). It can be used for either unfractionated or LMW Heparin. Order Code is ANTI-XA CBC (INCLUDES AUTOMATED DIFFERENTIAL)2017-10-12 08:42:00 Test Item Value Reference Range Comments WBC (test code=WBC) 7.2 10\S\3/uL 4.5-11.0 RBC (test code=RBC) 4.85 10\S\6/uL 4.20-5.60 HGB (test code=HBG) 14.0 g/dL 12.0-15.5 HCT (test code=HCT) 41.8 % 35.0-44.0 MCV (test code=MCV) 86.2 fL 81.0-99.0 MCH (test code=MCH) 28.9 pg 27.0-31.0 MCHC (test code=MCHC) 33.5 g/dL 32.0-36.0 RDW (test code=RDW) 13.5 % 11.5-14.5 PLT (test code=PLT) 213 10\S\3/uL 130-400 MPV (test code=MPV) 10.1 fL 9.4-12.4 NEUTROP # (test code=NE#) 3.7 10\S\3/uL 1.6-8.0 LYMPH # (test code=LY#) 2.6 10\S\3/uL 1.1-3.5 MONOCYTE # (test code=MO#) 0.7 10\S\3/uL 0.0-1.1 EOSINOPH # (test code=EO#) 0.1 10\S\3/uL 0.0-0.7 BASOPHIL # (test code=BA#) 0.1 10\S\3/uL 0.0-0.3 IG # (test code=IG#) 0.03 10\S\3/uL 0.00-0.06 NRBC # (test code=NRBC#) 0.00 10\S\3/uL 0.00-0.01 NEUTROPH % (test code=NE%) 51.3 % 35.0-73.0 LYMPH % (test code=LY%) 36.3 % 20.0-55.0 MONO % (test code=MO%) 9.3 % 2.5-10.0 EOSINOPH % (test code=EO%) 1.9 % 0.0-5.0 BASOPHIL % (test code=BA%) 0.8 % 0.0-2.0 IG % (test code=IG%) 0.4 % 0.0-0.8 NRBC% (test code=NRBC%) 0.0 % 0.0-0.2 MANDIFF (test code=MDIFF) NO NO RBC MORPH (test code=RBCMOR) NORMAL XR CHEST 1 VIEW [id number] 08:32:35Portable AP chest, 1 viewLocation Code: [id number] HISTORY: R52: PAIN, UNSPECIFIEDCOMPARISON: NoneCOMMENT: The heart size is enlarged with central pulmonary congestion along with rightbasilar atelectasis or scarring. Small right effusion suggested. Osseousstructures are intact.IMPRESSION: Mild CHF with mild right basilar atelectasis or scarring with smalleffusion.
[2019-06-13] MEDS ORDERED: ASPIRIN 81 MG CHEWABLE TABLET ONE (13:50)
[2019-06-13 13:53] LABS: Absolute Lymphocytes (CBC) 2.9 K/uL (0.7-4.9); Basophils % 1.3 % (0-1.3); Lymphocytes % 34.9 % (15.3-44.8); RBC Red Blood Cell Count 4.56 M/uL (3.86-4.86)
[2019-06-13 14:12] LABS: ALT/SGPT 30 U/L (12-78); AST/SGOT 26 U/L (15-37); Albumin 3.4 g/dL (3.4-5.0); Alkaline Phosphatase 76 U/L (45-117); BUN Blood Urea Nitrogen 10 mg/dL (7-18); Bicarbonate 24 mmol/L (21-32); Bilirubin Direct < 0.1 mg/dL (0-0.2); Bilirubin Total 0.2 mg/dL (0.2-1.0); Glucose Level 106 mg/dL (74-106); NT PRO-BNP 227 pg/mL (<125); Protein, Total 6.8 g/dL (6.4-8.2); Sodium Level 139 mmol/L (136-145); Troponin (Emerg Dept Use Only) < 0.02 ng/mL (0.0-0.045)
--- NOTE | 2019-06-13 14:25 | RAD REPORT ---
EXAM DESCRIPTION: Luís Single View06/13/2019 2:10 pm CLINICAL HISTORY: Chest pain COMPARISON: none FINDINGS: Mild right basilar social opacities probably chronic. Left lung appears clear Heart is borderline enlarged
--- NOTE | 2019-06-13 14:39 | EDPHYS ---
Physician Documentation [facility] Name: Unique Dial Age: 48 yrs Sex: Female : 1970 Arrival Date: 06/13/2019 Time: 13:19 Bed 8 Private MD: ED Physician Trevor Diamond HPI: 06/13 13:34 This 48 yrs old Female presents to ER via Ambulatory with complaints of Chest rn Pain. 13:34 The patient or guardian reports chest pain that is located primarily in the substernal rn area. Onset: at an unknown time. The pain radiates to the right arm, The chest pain is described as a heaviness, sharp. Duration: The patient or guardian reports multiple episodes. Modifying factors: The symptoms are alleviated by nothing. the symptoms are aggravated by exertion. Severity of pain: At its worst the pain was moderate in the emergency department the pain has improved. The patient has not experienced similar symptoms in the past. Reports worsening over last few months, chest pain/heaviness with exertion, better with rest, episodes last 20min to 1 hour. No trauma/cough/abd pain. Reports her doctor in past told her she has "heart problems". . Historical: - Allergies: 13:28 No Known Allergies; sg 13:28 No Known Allergies; ss - PMHx: 13:28 Asthma; Depression; Hyperlipidemia; Hypertension; Schizophrenia; sg 13:28 Asthma; Depression; Hyperlipidemia; Hypertension; Schizophrenia; ss - PSHx: 13:28 Appendectomy; Tubal ligation; sg 13:28 Appendectomy; Tubal ligation; ss - Immunization history:: Adult Immunizations up to date, Adult Immunizations up to date. - Social history:: Smoking status: Patient uses tobacco products, smokes one pack cigarettes per day. Smoking status: Patient uses tobacco products, smokes one pack cigarettes per day. - Ebola Screening: : Patient negative for fever greater than or equal to 101.5 degrees Fahrenheit, and additional compatible Ebola Virus Disease symptoms Patient denies exposure to infectious person Patient denies travel to an Ebola-affected area in the 21 days before illness onset No symptoms or risks identified at this time Patient denies exposure to infectious person Patient denies travel to an Ebola-affected area in the 21 days before illness onset. - Family history:: not pertinent. - Hospitalizations: : No recent hospitalization is reported. ROS: 13:34 Constitutional: Negative for fever, chills, and weight loss, Eyes: Negative for injury, rn pain, redness, and discharge, Neck: Negative for injury, pain, and swelling, Cardiovascular: Negative for palpitations, and edema, Respiratory: Negative for shortness of breath, cough, wheezing, and pleuritic chest pain, Abdomen/GI: + nausea, neg for abd pain MS/Extremity: Negative for injury and deformity, Skin: Negative for injury, rash, and discoloration, Neuro: Negative for headache, weakness, numbness, tingling, and seizure. Exam: 13:34 Constitutional: This is a well developed, well nourished patient who is awake, alert, rn and in no acute distress. Head/Face: Normocephalic, atraumatic. Eyes: Pupils equal round and reactive to light, extra-ocular motions intact. Lids and lashes normal. Conjunctiva and sclera are non-icteric and not injected. Cornea within normal limits. Periorbital areas with no swelling, redness, or edema. Neck: Trachea midline, no thyromegaly or masses palpated, and no cervical lymphadenopathy. Supple, full range of motion without nuchal rigidity, or vertebral point tenderness. No Meningismus. Cardiovascular: Regular rate and rhythm. No pulse deficits. Respiratory: No increased work of breathing, no retractions or nasal flaring. Abdomen/GI: soft, non-tender Skin: Warm, dry with normal turgor. Normal color with no rashes, no lesions, and no evidence of cellulitis. MS/ Extremity: Pulses equal, no cyanosis. Neurovascular intact. Full, normal range of motion. Equal circumference. Neuro: Awake and alert, GCS 15, oriented to person, place, time, and situation. Cranial nerves II-XII grossly intact. Motor strength 5/5 in all extremities. Sensory grossly intact. Cerebellar exam normal. Normal gait. Vital Signs: 13:25 BP 136 / 77; Pulse 77; Resp 18; Temp 98.1; Pulse Ox 100% on R/A; sg 15:43 BP 130 / 75; Pulse 72; Resp 18; Temp 98; Pulse Ox 100% ; sv MDM: 13:22 Patient medically screened. rn 14:35 Differential diagnosis: acute myocardial infarction, acute pericarditis, coronary rn artery disease pericarditis, pneumonia, pneumothorax, stable angina, unstable angina. The patient was given aspirin in the Emergency Department. Data reviewed: vital signs, nurses notes, lab test result(s), EKG, radiologic studies, plain films, and as a result, I will admit patient. Counseling: I had a detailed discussion with the patient and/or guardian regarding: the historical points, exam findings, and any diagnostic results supporting the discharge/admit diagnosis, lab results, radiology results, the need for further work-up and treatment in the hospital. Admission orders: after a detailed discussion of the patient's condition and case, the admit orders are written by me. ED course: Pt with concerning story for cardiac etiology of chest pain, neg trop and twave inversions anterior leads on ECG, admitted to [facility]. . 06/13 13:31 Order name: Basic Metabolic Panel; Complete Time: 14:34 rn 06/13 13:31 Order name: CBC with Diff; Complete Time: 14:34 rn 06/13 13:31 Order name: LFT's; Complete Time: 14:34 rn 06/13 13:31 Order name: NT PRO-BNP; Complete Time: 14:34 rn 06/13 13:31 Order name: Troponin (emerg Dept Use Only); Complete Time: 14:34 rn 06/13 13:31 Order name: XRAY Chest (1 view); Complete Time: 14:34 rn 06/13 13:24 Order name: EKG; Complete Time: 13:26 sg 06/13 13:31 Order name: Cardiac monitoring; Complete Time: 13:44 rn 06/13 13:31 Order name: EKG - Nurse/Tech; Complete Time: 13:45 rn 06/13 13:31 Order name: IV Saline Lock; Complete Time: 13:43 rn 06/13 13:31 Order name: Labs collected and sent; Complete Time: 13:43 rn 06/13 13:31 Order name: O2 Per Protocol; Complete Time: 13:51 rn 06/13 13:31 Order name: O2 Sat Monitoring; Complete Time: 13:51 rn Administered Medications: 13:51 Drug: Aspirin Chewable Tablet 324 mg Route: PO; sg 15:43 Follow up: Response: No adverse reaction sv Disposition: 06/13/19 14:38 Hospitalization ordered by Héctor Santana for Observation. Preliminary diagnosis is Chest pain, unspecified. - Bed requested for Telemetry/MedSurg (observation). - Status is Observation. ss - Condition is Stable. - Problem is new. - Symptoms have improved. UTI on Admission? No Signatures: Dispatcher [employer] EDMS Zainab Jean Baptiste Clifton Carroll, RN RN sg Trevor Diamond MD MD rn Smirch, Shelby, RN RN Bria Crespo RN Corrections: (The following items were deleted from the chart) 15:37 14:38 Hospitalization Ordered by Héctor Santana DO for Observation. Preliminary bd diagnosis is Chest pain, unspecified. Bed requested for Telemetry/MedSurg (observation). Status is Observation. Condition is Stable. Problem is new. Symptoms have improved. UTI on Admission? No. rn 16:14 15:37 06/13/2019 14:38 Hospitalization Ordered by Héctor Santana DO for Observation. ss Preliminary diagnosis is Chest pain, unspecified. Bed requested for Telemetry/MedSurg (observation). Status is Observation. Condition is Stable. Problem is new. Symptoms have improved. UTI on Admission? No. bd
--- NOTE | 2019-06-13 14:39 | ER ---
Nurse's Notes [facility] Name: Unique Dial Age: 48 yrs Sex: Female : 1970 Arrival Date: 06/13/2019 Time: : Bed 8 Private MD: Diagnosis: Chest pain, unspecified Presentation: 06/13 13:25 Presenting complaint: Patient states: Was told about 10 or 12 months ago to have her sg heart checked regularly by a heart doctor, pt denies pain or shortness of breath at this time, reports having not been seen by any PCP. Reports having an episode of palpitations about a month ago, reports having chest pain x1 episode that lasted about an hour, has not had any episodes since then. Transition of care: patient was not received from another setting of care. Onset of symptoms was June 13, 2019. Risk Assessment: Do you want to hurt yourself or someone else? Patient reports no desire to harm self or others. Initial Sepsis Screen: Does the patient meet any 2 criteria? No. Patient's initial sepsis screen is negative. Does the patient have a suspected source of infection? No. Patient's initial sepsis screen is negative. Care prior to arrival: None. 13:25 Method Of Arrival: Ambulatory sg 13:25 Acuity: YAMILET 3 sg 13:26 Presenting complaint: Patient states: Told months ago that she has severe heart ss problems and needs a stent. Pt has no complaints at this time, but states she is just here to get checked out. Transition of care: patient was not received from another setting of care. Onset of symptoms is unknown. Risk Assessment: Do you want to hurt yourself or someone else? Patient reports no desire to harm self or others. Initial Sepsis Screen: Does the patient have a suspected source of infection? No. Patient's initial sepsis screen is negative. Initial Sepsis Screen:. Care prior to arrival: None. 13:26 Acuity: YAMILET 3 ss 13:26 Method Of Arrival: Ambulatory ss Historical: - Allergies: 13:28 No Known Allergies; sg 13:28 No Known Allergies; ss - PMHx: 13:28 Asthma; Depression; Hyperlipidemia; Hypertension; Schizophrenia; sg 13:28 Asthma; Depression; Hyperlipidemia; Hypertension; Schizophrenia; ss - PSHx: 13:28 Appendectomy; Tubal ligation; sg 13:28 Appendectomy; Tubal ligation; ss - Immunization history:: Adult Immunizations up to date, Adult Immunizations up to date. - Social history:: Smoking status: Patient uses tobacco products, smokes one pack cigarettes per day. Smoking status: Patient uses tobacco products, smokes one pack cigarettes per day. - Ebola Screening: : Patient negative for fever greater than or equal to 101.5 degrees Fahrenheit, and additional compatible Ebola Virus Disease symptoms Patient denies exposure to infectious person Patient denies travel to an Ebola-affected area in the 21 days before illness onset No symptoms or risks identified at this time Patient denies exposure to infectious person Patient denies travel to an Ebola-affected area in the 21 days before illness onset. - Family history:: not pertinent. - Hospitalizations: : No recent hospitalization is reported. Screenin:30 Abuse screen: Denies threats or abuse. Denies injuries from another. Nutritional sg screening: No deficits noted. Tuberculosis screening: No symptoms or risk factors identified. Fall Risk None identified. Assessment: 13:10 General: Appears in no apparent distress. comfortable, well groomed, well developed, sg well nourished, Behavior is calm, cooperative, appropriate for age. Pain: Complains of pain in chest Quality of pain is described as aching. Neuro: Level of Consciousness is awake, alert, obeys commands, Oriented to person, place, time, Moves all extremities. Gait is steady, Speech is normal, Facial symmetry appears normal. Cardiovascular: Capillary refill is brisk in bilateral fingers Patient's skin is warm and dry. Chest pain is described as vague, quality is pressure, is located in anterior chest wall. Cardiovascular: Heart tones S1 S2 present Chest pain. Respiratory: Airway is patent Respiratory effort is even, unlabored, Respiratory pattern is regular, symmetrical, Denies cough, shortness of breath. GI: Abdomen is round non-distended, Reports tolerance of fluids, tolerance of food. : No signs and/or symptoms were reported regarding the genitourinary system. EENT: No signs and/or symptoms were reported regarding the EENT system. Derm: Skin is pink, warm \T\ dry. Musculoskeletal: Circulation, motion, and sensation intact. Range of motion: intact in all extremities. 14:39 Reassessment: Dr Santana at the bedside. sv Vital Signs: 13:25 BP 136 / 77; Pulse 77; Resp 18; Temp 98.1; Pulse Ox 100% on R/A; sg 15:43 BP 130 / 75; Pulse 72; Resp 18; Temp 98; Pulse Ox 100% ; sv ED Course: 13:19 Patient arrived in ED. ag5 13:22 Trevor Diamond MD is Attending Physician. rn 13:23 Clifton Lewis RN is Primary Nurse. sg 13:27 Triage completed. sg 13:27 Arm band placed on. sg 13:43 Initial lab(s) drawn, by me, sent to lab. Inserted saline lock: 20 gauge in right em1 antecubital area, using aseptic technique. Blood collected. 14:08 XRAY Chest (1 view) In Process Unspecified. EDMS 14:38 Héctor Santana DO is Hospitalizing Provider. rn 15:43 No provider procedures requiring assistance completed. Patient admitted, IV remains in sv place. intact. Administered Medications: 13:51 Drug: Aspirin Chewable Tablet 324 mg Route: PO; sg 15:43 Follow up: Response: No adverse reaction sv Outcome: 14:38 Decision to Hospitalize by Provider. rn 15:42 Admitted to Tele accompanied by [facility], via wheelchair, room 225, with chart, Report sv called to [place] RN 15:42 Condition: stable 15:42 Instructed on the need for admit. 16:14 Patient left the ED. Signatures: Dispatcher [employer] EDMA Bria Crespo RN RN Clifton Lewis, RN PALMER Trevor Diamond MD MD rn [place] [id number] Lluvia Allred RN RN Ayan Smith ag5
--- NOTE | 2019-06-13 15:36 | P.HP ---
Certification for Inpatient Patient admitted to: Observation With expected LOS: <2 Midnights Patient will require the following post-hospital care: None Practitioner: I am a practitioner with admitting privileges, knowledge of patient current condition, hospital course, and medical plan of care. Services: Services provided to patient in accordance with Admission requirements found in Title 42 Section 412.3 of the Code of Federal Regulations Patient History Date of Service: 06/13/19 Primary Care Provider: Dr. Egan([place], [place]) Reason for admission: Chest pain History of Present Illness: 48-year-old female with history of schizophrenia, hypertension, hyperlipidemia and tobacco abuse. Patient presented with chest pain. Patient reports chest pain for the past week. Chest pain mainly to the substernal region. It would radiate to both shoulders and neck. He would occur with exertion and last for about 20 min. He was better with rest. She denied any significant headaches, dizziness, nausea or vomiting. She is homeless but still sees a PCP in [facility]. She has been told that she in may require cardiac workup. She has not had any cardiac workup. In the ER patient evaluated. CBC unremarkable. BMP unremarkable. Initial troponin less than 0.02. BNP 227. Chest x-ray unremarkable. EKG shows some ST inversions to the anterior leads. Patient admitted for further evaluation. When I saw the patient ER, she appeared stable. No chest pain noted. Patient with history of schizophrenia. She does not take any medication. This appears stable at this time. Allergies NKDA Allergy (Uncoded 06/30/15 16:31) Unknown No Known Aller Allergy (Uncoded 01/11/17 09:02) Unknown Home medications list reviewed: Yes - Past Medical/Surgical History Diabetic: No -: Hypertension -: Hyperlipidemia -: Tobacco abuse -: Schizophrenia Past Surgical History: Patient denies surgical history Psychosocial/ Personal History: Patient is homeless - Family History Father -: Heart disease Mother -: Cancer (Breast cancer) - Social History Smoking Status: Heavy Tobacco smoker (>10 cigarettes/day) Counseled patient to stop smoking for: less than 10 minutes Smoking therapy provided: Yes Patient receptive to therapy: Yes Alcohol use: No CD- Drugs: No Caffeine use: No Place of Residence: Home Review of Systems 10-point ROS is otherwise unremarkable () General: Unremarkable Eyes: Unremarkable ENT: Unremarkable Respiratory: Unremarkable Cardiovascular: Chest Pain, As per HPI Gastrointestinal: Unremarkable Genitourinary: Unremarkable Musculoskeletal: Unremarkable Integumentary: Unremarkable Neurological: Unremarkable Lymphatics: Unremarkable Physical Examination - Physical Exam General: Alert, In no apparent distress, Oriented x3, Cooperative HEENT: Atraumatic, Mucous membr. moist/pink Neck: Supple Respiratory: Clear to auscultation bilaterally, Normal air movement Cardiovascular: Normal pulses, Regular rate/rhythm Gastrointestinal: Normal bowel sounds, No ascites, No tenderness, No masses, No rebound, No guarding Musculoskeletal: No erythema, No tenderness, No warmth Integumentary: No tenderness/swelling, No erythema, No warmth, No cyanosis Neurological: Normal speech, Normal strength at 5/5 x4 extr, Normal tone, Normal affect - Studies Laboratory Data (last 24 hrs) 06/13/19 13:40: WBC 8.3, Hgb 12.7, Hct 38.0, Plt Count 248 06/13/19 13:40: Sodium 139, Potassium 4.0, BUN 10, Creatinine 0.86, Glucose 106 , Total Bilirubin 0.2, AST 26, ALT 30, Alkaline Phosphatase 76 Assessment and Plan - Plan Impression: Chest pain suspect CAD Hypertension Hyperlipidemia Tobacco abuse Schizophrenia COPD Plan: Chest pain suspect CAD: Patient will be admitted for observation. Will continue to monitor telemetry and cardiac enzymes. Will order echocardiogram to further evaluate. Case discussed with cardiology. Will order cardiac stress tests in the morning to further assess. Will continue with aspirin, Plavix, metoprolol, Lipitor and Imdur. Will provide Lovenox for DVT prophylaxis. Will monitor closely. Will discuss with social service worker about possible resources for the patient as she is homeless. Anticipate discharge tomorrow if clinically stable and workup unremarkable. Hypertension: Continue with metoprolol. Will monitor and adjust appropriately Hyperlipidemia: Will check fasting lipid panel. Will continue with Lipitor. Tobacco abuse: Tobacco cessation addressed in detail. Will monitor closely. Schizophrenia: Overall stable. Will have social service worker provide information to further address as an outpatient. COPD: Will provide medication. Patient may require medication at discharge. Discharge Plan: Home Plan to discharge in: 24 Hours - Advance Directives Does patient have a Living Will: No Does patient have a Durable POA for Healthcare: No - Code Status/Comfort Care Code Status Assessed: Yes (Patient is full code) Time Spent Managing Pts Care (In Minutes): 55
[2019-06-13] MEDS ORDERED: IPRATROPIUM BROM 0.5MG/2.5ML NEB PRN (15:43)
[2019-06-13] MEDS ORDERED: ALBUTEROL 2.5 MG/3 ML NEB SOL NEB PRN (15:43)
[2019-06-13] MEDS ORDERED: ONDANSETRON 4 MG/2 ML VIAL IV PRN (15:43)
[2019-06-13] MEDS ORDERED: ACETAMINOPHEN 500 MG TAB PO PRN (15:43)
[2019-06-13] MEDS ORDERED: ENOXAPARIN 40 MG/0.4 ML SQ SCH (17:00)
[2019-06-13] MEDS: METOPROLOL TAR 25 MG TAB PO SCH (17:29)
[2019-06-13 17:40] VITALS: BMI 34.0
[2019-06-13 19:33] LABS: CKMB Creatine Kinase MB 6.2 ng/mL (0.3-3.6); Creatine Phosphokinase 326 U/L (26-192); Troponin I < 0.02 ng/mL (0.0-0.045)
[2019-06-13] MEDS ORDERED: ATORVASTATIN 40 MG TAB PO SCH (21:00)
[2019-06-13] MEDS ORDERED: DULERA 100/5 (MOMETASONE/FORMOTEROL) INHALER IH SCH (21:00)
[2019-06-14 00:06] VITALS: O2SAT 95
[2019-06-14 04:36] LABS: CKMB Creatine Kinase MB 4.5 ng/mL (0.3-3.6); Creatine Phosphokinase 258 U/L (26-192); Troponin I < 0.02 ng/mL (0.0-0.045)
[2019-06-14 05:25] VITALS: BP 130/72; TEMP 97.8
[2019-06-14] MEDS: METOPROLOL TAR 25 MG TAB PO SCH (06:00)
[2019-06-14 06:28] LABS: Magnesium 2.1 mg/dL (1.8-2.4); Potassium 4.2 mmol/L (3.5-5.1); Thyroid Stimulating Hormone 0.794 uIU/mL (0.360-3.740)
--- NOTE | 2019-06-14 08:53 | P.DS ---
Discharge Date: 06/14/19 Primary Care Provider: Dr. Egan([place], [place]) Disposition: AMA-LEFT AGAINST MEDICAL ADVIC Discharge Condition: GOOD Reason for Admission: Chest pain Consultations: cardiology Brief History of Present Illness: 48-year-old female with history of schizophrenia, hypertension, hyperlipidemia and tobacco abuse. Patient presented with chest pain. Patient reports chest pain for the past week. Chest pain mainly to the substernal region. It would radiate to both shoulders and neck. He would occur with exertion and last for about 20 min. He was better with rest. She denied any significant headaches, dizziness, nausea or vomiting. She is homeless but still sees a PCP in [facility]. She has been told that she in may require cardiac workup. She has not had any cardiac workup. In the ER patient evaluated. CBC unremarkable. BMP unremarkable. Initial troponin less than 0.02. BNP 227. Chest x-ray unremarkable. EKG shows some ST inversions to the anterior leads. Patient admitted for further evaluation. When I saw the patient ER, she appeared stable. No chest pain noted. Patient with history of schizophrenia. She does not take any medication. This appears stable at this time. Hospital Course: patient troponins were negative. Patient woke up this morning and did not want to stay in the hospital any further. We spoke to nursing staff and they stated that she was adamant about going home and did not want to speak to myself - she was just wanting to sign the AMA papers to go. We had the nurse advise her to come back to the ER for symptoms worsen. She will leave against medical advice at this time. Vital Signs/Physical Exam: Temp Pulse Resp BP Pulse Ox 97.8 F 59 16 130/72 96 06/14/19 04:00 06/14/19 04:00 06/14/19 04:00 06/14/19 04:00 06/14/19 04:00 Laboratory Data at Discharge: WBC 8.3 K/uL (4.3-10.9) 06/13/19 13:40 Hgb 12.7 g/dL (12.0-15.0) 06/13/19 13:40 Hct 38.0 % (36.0-45.0) 06/13/19 13:40 Plt Count 248 K/uL (152-406) 06/13/19 13:40 Sodium 140 mmol/L (136-145) 06/14/19 05:09 Potassium 4.2 mmol/L (3.5-5.1) 06/14/19 05:09 BUN 8 mg/dL (7-18) 06/14/19 05:09 Creatinine 0.79 mg/dL (0.55-1.3) 06/14/19 05:09 Glucose 85 mg/dL (74-106) 06/14/19 05:09 Magnesium 2.1 mg/dL (1.8-2.4) 06/14/19 05:09 Total Bilirubin 0.2 mg/dL (0.2-1.0) 06/13/19 13:40 AST 26 U/L (15-37) 06/13/19 13:40 ALT 30 U/L (12-78) 06/13/19 13:40 Alkaline Phosphatase 76 U/L (45-117) 06/13/19 13:40 Troponin I < 0.02 ng/mL (0.0-0.045) 06/14/19 03:02 Triglycerides 200 mg/dL (<150) H 06/14/19 05:09 Cholesterol 267 mg/dL (<200) H 06/14/19 05:09 HDL Cholesterol 38 mg/dL (40-60) L 06/14/19 05:09 Cholesterol/HDL Ratio 7.03 06/14/19 05:09 Home Medications: Isosorbide Mononitrate [Isosorbide Mononitrate ER] 60 mg PO DAILY 06/13/19 Metoprolol Tartrate [Lopressor*] 25 mg PO DAILY 06/13/19 lisinopriL [Lisinopril] 5 mg PO DAILY 06/13/19 Patient Discharge Instructions: patient left against medical advice. Advised her to return to the ER if symptoms worsen. Time spent managing pt's care (in minutes): 15
[2019-06-14] MEDS ORDERED: ISOSORBIDE MONO SR 60 MG TAB PO SCH (09:00)
[2019-06-14] MEDS ORDERED: CLOPIDOGREL 75 MG TABLET PO SCH (09:00)
[2019-06-14] MEDS ORDERED: ASPIRIN EC 81 MG TAB PO SCH (09:00)
--- NOTE | 2019-06-14 16:37 | EKG ---
Test Date: 2019-06-13 Test Time: 13:30:53 Machine Cage Maker: KIMBERLY MEASUREMENT RESULTS: Intervals: Rate: 92 DE: 148 QRSD: 134 QT: 398 QTc: 492 [place]: P: 74 DE: 148 QRS: 114 T: 55 INTERPRETIVE STATEMENTS: Normal sinus rhythm with sinus arrhythmia Right bundle branch block Abnormal ECG No previous ECG available for comparison Electronically Signed On 06-14-19 16:34:13 RHINOLOGIST by Hernan Murray
--- NOTE | 2019-06-15 22:04 | CON ---
Date of Consultation: 06/13/[address] Santana on 06/13/2019. I saw the patient on 06/13/2019. Reason For Consultation: Chest pain. History Of Present Illness: Ms. Dial is a 48-year-old woman, has a history of hypertension, asthma, depression, schizophrenia as well as coronary artery disease. She is not sure, but it sounds like s he has had stents in the past. She see a primary care physician at [place], [place]. She came in wit h chest pain that is substernal, occasionally radiating to the left arm without shortness of breath o r nausea or vomiting or diaphoresis. Her symptoms sometimes are exertional and sometime they occur a t rest. They are relieved with Imdur. Denied PND, orthopnea, pedal edema, palpitations, or syncope. Past Medical History: As stated above. Allergies: NONE. Review of Systems: Negative. Social History: Negative. Family History: Noncontributory. Medications At Home: Imdur 30 mg daily, lisinopril, and metoprolol. Physical Examination: Vital signs: Stable. Afebrile. HEENT: Negative. Neck: Supple with no bruit. Chest: Clear to auscultation and percussion. Cardiac: Regular rhythm and rate. No murmurs, gallops, or rubs. Abdomen: Benign. Extremities: No clubbing, cyanosis, or edema. Diagnostic Data: Diagnostic data that were stated earlier were all normal. She had a normal EKG, no rmal troponin, normal x-ray, normal BNP. Impression And Plan: Ms. Dial has had a history of coronary artery disease, status post stents that are recent. Her symptoms are concerning from a cardiovascular standpoint. She is on the right medi cation. Her symptoms are improved with Imdur. She has ruled out for myocardial infarction. I think it will be reasonable to get a Lexiscan and an echocardiogram on her in the morning prior to making final decisions. Her blood pressure is well controlled. Her asthma is well controlled. She also saravia s history of depression and schizophrenia, that is followed by primary care physician in [place]. Hillary mckinney will continue to follow her. MILANA/KENY Voice ID: [id number] Report ID: [id number]
== END 2019-06-14 06:00 | disposition left against medical advice (07) ==
LOC: ER 13:17 → ERHOLD 14:46 → 2ND 15:43
PROVIDERS: ADMIT Family Medicine; ATTEND Family Medicine
DX: R07.9 Chest pain, unspecified (principal); Z53.29 Procedure and treatment not carried out because of patient's decision for other reasons; F20.9 Schizophrenia, unspecified; I10 Essential (primary) hypertension; E78.5 Hyperlipidemia, unspecified; I25.10 Atherosclerotic heart disease of native coronary artery without angina pectoris; Z95.5 Presence of coronary angioplasty implant and graft; F17.210 Nicotine dependence, cigarettes, uncomplicated
CPT/HCPCS: 93005; 85025; 80048 ×2; 36415; 83735; 82550 ×2; 80061; 80076; 84443; 84484 ×3; 82553 ×2; 84439; 83880; 71045; 99285; J1650; G0378 ×3; J7606

== ENCOUNTER 2019-06-15 07:36 | Emergency (ER) | payer OTHER ==
--- OUTSIDE RECORDS SUMMARY | 2019-06-15 07:40 | XMS REPORT ---
:1970 [facility] Address [address] [place] [address] Care Team Providers Name Role Phone DR [...] Facility Department ID 2018-01-10 Inpatient KLEVER GIVENS [facility] RAD [id number] 12:30:00 2017-08-22 Inpatient KLEVER GIVENS [facility] RAD [id number] 10:30:00 2019-03-09 2019-03-09 Emergency WINTER TORO [facility] ECC [id number] 10:42:00 12:25:00 2018-12-04 2018-12-04 Outpatient Errol KELLER [facility] CATH [id number] 09:00:00 09:00:00 STALIN 2018-07-30 2018-07-30 Outpatient Errol KELLER [facility] CATH [id number] 07:59:00 10:30:00 STALIN 2018-05-26 2018-05-26 Emergency FABIO WADSWORTH [facility] ECC [id number] 12:50:00 14:10:00 2018-04-24 2018-04-24 Outpatient Errol KANG [facility] RAD [id number] 08:45:00 08:45:00 CHAUNCEY 2018-03-15 2018-03-15 Outpatient Errol KANG, [facility] RAD [id number] 13:00:00 13:00:00 CHAUNCEY 2018-03-01 2018-03-01 Emergency E NADER INGRAM [facility] ECC [id number] 14:10:00 16:00:00 2018-02-25 2018-02-28 Inpatient E CARRIE [facility] TELE [id number] 22:17:00 14:15:00 JOAQUIN 2017-10-23 2017-10-23 Emergency E WINTER INGRAM [facility] ECC [id number] 16:59:00 19:50:00 2017-10-17 2017-10-17 Outpatient C KLEVER MIRANDA [facility] RAD [id number] 09:59:00 23:59:00 2017-10-16 2017-10-16 Outpatient KLEVER GIVENS [facility] RAD [id number] 10:59:00 23:59:00 2017-10-12 2017-10-13 Outpatient E EDEL [facility] TELE [id number] 13:06:00 18:54:00 MEHJABIN Results Test Description Test [...] <=42 ALT (test code=31A) 29 IU/L <=78 [id number] 11:55:00 Test Item Value Reference Range Comments CPK (test code=32A) 275 IU/L 26-192 AMYLASE AND [id number] 11:55:00 Test Item Value Reference Range Comments AMYLASE (test code=10A) 32 U/L 28-100 LIPASE (test code=60A) 139 IU/L 73-393 TROPONIN [id number] 11:43:00 Test Item Value Reference Range Comments TROPONIN I (test code=A84) <0.015 ng/mL 0.000-0.045 DRUGS OF [id number] 11:40:00 Test Item Value Reference Range Comments [...] Barbiturates 200 ng/mL Opiates 2000 ng/mL SERUM [id number] 11:34:00 Test Item Value Reference Range Comments PREG SRM (test code=PGS) NEGATIVE NEGATIVE PRO TIME AND [id number] 11:33:00 Test Item Value Reference Range Comments [...] Code is ANTI-XA XR CHEST 1 VIEW [id number] 11:32:20EXAM: Portable chest x-rayDictation location: [id number]: Chest x-ray on 05/26/18INDICATION: chestpainDISCUSSION: Mild elevation [...] RBC MORPH (test code=RBCMOR) NORMAL COMPREHENSIVE METABOLIC [id number] 09:42:00 Test Item Value Reference Range Comments [...] code=31A) 28 IU/L <=78 PRO TIME AND [id number] 09:37:00 Test Item Value Reference Range Comments [...] NO RBC MORPH (test code=RBCMOR) NORMAL URINE [id number] 09:13:00 Test Item Value Reference Range Comments PREG UR (test code=PGU) NEGATIVE NEGATIVE BRAIN NATRIURETIC [id number] 13:43:00 Test Item Value Reference Range Comments proBNP (test code=PBNP) 155 pg/mL 0-125 AMYLASE AND [id number] 13:40:00 Test Item Value Reference Range Comments AMYLASE (test code=10A) 35 U/L 28-100 LIPASE (test code=60A) 197 IU/L 73-393 COMPREHENSIVE METABOLIC [id number] 13:40:00 Test Item Value Reference Range Comments [...] <=42 ALT (test code=31A) 30 IU/L <=78 [id number] 13:40:00 Test Item Value Reference Range Comments CPK (test code=32A) 297 IU/L 26-192 TROPONIN [id number] 13:40:00 Test Item Value Reference Range Comments TROPONIN I (test code=A84) <0.015 ng/mL 0.000-0.045 XR CHEST 1 VIEW [id number] 13:35:17Location code: A 1Chest 1 viewIndication: Chest.Comparison: 09/26/17. 03/01/18.Findings:The cardiac silhouette is magnified. Mediastinal structures are undisplaced. Nopleural effusion. Small scarring at the right base unchanged since 09/26/17.Lungs otherwise clear. Bone is unremarkable.Impression: No evidence of acute pathology.PRO TIME AND [id number] 13:29:00 Test Item Value Reference Range Comments [...] LMW Heparin. Order Code is ANTI-XA SERUM [id number] 13:25:00 Test Item Value Reference Range Comments [...] RBC MORPH (test code=RBCMOR) NORMAL BRAIN NATRIURETIC [id number] 15:06:00 Test Item Value Reference Range Comments proBNP (test code=PBNP) 448 pg/mL 0-125 CARDIAC [id number] 15:04:00 Test Item Value Reference Range Comments TROPONIN I (test code=A84) <0.015 ng/mL 0.000-0.045 CKMB (test code=A49) 2.9 ng/mL <=3.6 CPK (test code=32A) 180 IU/L 26-192 COMPREHENSIVE METABOLIC [id number] 15:02:00 Test Item Value Reference Range Comments [...] code=31A) 28 IU/L <=78 PRO TIME AND [id number] 14:53:00 Test Item Value Reference Range Comments [...] (test code=RBCMOR) NORMAL XR CHEST 1 VIEW [id number] 14:38:19Portable AP chest, 1 viewLocation Code: P1TNMEMNYL HISTORY: Chest painCOMPARISON: CT dated 02/26/2018 02/25/2018, 10/23/2017COMMENT: Mild atelectasis versus scarring within the right lung base is stable. Leftchest is clear. The cardiomediastinal silhouette is stable. The bones areintact.IMPRESSION: Stable chest with no acute abnormalityBASIC METABOLIC [id number] 05:24:00 Test Item Value Reference Range Comments [...] NO RBC MORPH (test code=RBCMOR) NORMAL CARDIAC [id number] 16:26:00 Test Item Value Reference Range Comments TROPONIN I (test code=A84) 0.158 ng/mL 0.000-0.045 CKMB (test code=A49) 3.1 ng/mL <=3.6 CPK (test code=32A) 177 IU/L 26-192 THYROID PANEL/SCREEN (TSH)2018-02-26 12:29:00 Test Item Value Reference Range Comments TSH (test code=A57) 0.878 uIU/mL 0.358-3.740 [id number] 12:14:00 Test Item Value Reference Range Comments Hb A1C % (test code=HBA) 5.3 % 4.2-6.3 BASIC METABOLIC [id number] 12:05:00 Test Item Value Reference Range Comments [...] CALCIUM (test code=09D) 8.1 mg/dL 8.3-9.5 LIPID [id number] 12:02:00 Test Item Value Reference Range Comments [...] NO RBC MORPH (test code=RBCMOR) NORMAL CARDIAC [id number] 05:57:00 Test Item Value Reference Range Comments TROPONIN I (test code=A84) 0.341 ng/mL 0.000-0.045 CKMB (test code=A49) 2.7 ng/mL <=3.6 CPK (test code=32A) 154 IU/L 26-192 CT PE [id number] 00:34:43AFTER HOURS SERVICE ON: 02/26/2018 12:30 AMCT Scan of the Chest With ContrastLocation Code P70Ytcfsut:[id number]: Chest painTechnique: Scans were performed on a [...] can be further evaluated with ultrasound.BRAIN NATRIURETIC [id number] 23:25:00 Test Item Value Reference Range Comments proBNP (test code=PBNP) 287 pg/mL 0-125 COMPREHENSIVE METABOLIC [id number] 23:21:00 Test Item Value Reference Range Comments [...] ALT (test code=31A) 26 IU/L <=78 CARDIAC [id number] 23:21:00 Test Item Value Reference Range Comments TROPONIN I (test code=A84) 0.358 ng/mL 0.000-0.045 CKMB (test code=A49) 3.6 ng/mL <=3.6 CPK (test code=32A) 205 IU/L 26-192 [id number] 23:19:00 Test Item Value Reference Range Comments D-DIMER (test code=DDI) 293 ng/mL D-DU 0-234 D-DIMER COMMENT (test *Level to rule out DVT or PE: code=DDCOM) <235 ng/mL D-DU* PRO TIME AND [id number] 23:18:00 Test Item Value Reference Range Comments [...] Code is ANTI-XA XR CHEST 1 VIEW [id number] 23:05:48LOCATION: V20 EXAM: XR CHEST 1 VIEW PORTABLEHISTORY: [id number]: Chest pain TECHNIQUE: Frontal view ofthe chest.COMPARISON: [...] NO RBC MORPH (test code=RBCMOR) NORMAL CARDIAC [id number] 18:52:00 Test Item Value Reference Range Comments TROPONIN I (test code=A84) <0.015 ng/mL 0.000-0.045 CKMB (test code=A49) 3.4 ng/mL <=3.6 CPK (test code=32A) 206 IU/L 26-192 BRAIN NATRIURETIC [id number] 18:50:00 Test Item Value Reference Range Comments proBNP (test code=PBNP) 178 pg/mL 0-125 AMYLASE AND [id number] 18:50:00 Test Item Value Reference Range Comments AMYLASE (test code=10A) 36 U/L 28-100 LIPASE (test code=60A) 208 IU/L 73-393 COMPREHENSIVE METABOLIC [id number] 18:50:00 Test Item Value Reference Range Comments [...] ALT (test code=31A) 29 IU/L <=78 SERUM [id number] 18:43:00 Test Item Value Reference Range Comments PREG SRM (test code=PGS) NEGATIVE NEGATIVE PRO TIME AND [id number] 18:41:00 Test Item Value Reference Range Comments [...] Heparin. Order Code is ANTI-XA URINALYSIS WITH [id number] 18:41:00 Test Item Value Reference Range Comments [...] code=MDIFF) NO NO XR CHEST 1 VIEW [id number] 17:58:39STUDY: Chest radiographHISTORY: Chest pain.COMPARISON: 10/12/17TECHNIQUE: Frontal view of the chest.LOCATION: [id number]:An electronic device projects over the left chest, not seen previously.The cardiac silhouette is unremarkable. Again seen is a curvilinear density atthe right lung base with tentingof the right hemidiaphragm. There is nopleural effusion, pneumothorax or focal consolidation.No acute osseous abnormalities are identified.IMPRESSION:1. No radiographic evidence for acute pulmonary abnormality.2. Similar appearance of right basilar atelectasis/ fibrosis.BASIC METABOLIC [id number] 04:08:00 Test Item Value Reference Range Comments [...] NO RBC MORPH (test code=RBCMOR) NORMAL CARDIAC [id number] 23:12:00 Test Item Value Reference Range Comments TROPONIN I (test code=A84) <0.015 ng/mL 0.000-0.045 CKMB (test code=A49) 3.7 ng/mL <=3.6 CPK (test code=32A) 192 IU/L 26-192 CARDIAC [id number] 15:14:00 Test Item Value Reference Range Comments TROPONIN I (test code=A84) <0.015 ng/mL 0.000-0.045 CKMB (test code=A49) 4.4 ng/mL <=3.6 CPK (test code=32A) 208 IU/L -192 CT PE [id number] 09:57:42CT CHEST WITH CONTRAST, PE PROTOCOL:Location code: O9LXKGSCDG HISTORY: Shortness of breath , chest painCOMPARISON: [...] theright lower lobeand right lung base. URINE [id number] 09: 21:00 Test Item Value Reference Range Comments PREG UR (test code=PGU) NEGATIVE NEGATIVE CARDIAC [id number] 09:00:00 Test Item Value Reference Range Comments TROPONIN I (test code=A84) <0.015 ng/mL 0.000-0.045 CKMB (test code=A49) 5.4 ng/mL <=3.6 CPK (test code=32A) 238 IU/L 26-192 DRUGS OF [id number] 08:58:00 Test Item Value Reference Range Comments [...] ng/mL Barbiturates 200 ng/mL Opiates 2000 ng/mL [id number] 08:56:00 Test Item Value Reference Range Comments D-DIMER (test code=DDI) 475 ng/mL D-DU 0-234 D-DIMER COMMENT (test *Level to rule out DVT or PE: code=DDCOM) <235 ng/mL D-DU* COMPREHENSIVE METABOLIC [id number] 08:56:00 Test Item Value Reference Range Comments [...] <=42 ALT (test code=31A) 30 IU/L <=78 [id number] 08:53:00 Test Item Value Reference Range Comments [...] (test code=LEUK) NEGATIVE NEGATIVE PRO TIME AND [id number] 08:48:00 Test Item Value Reference Range Comments [...] (test code=RBCMOR) NORMAL XR CHEST 1 VIEW [id number] 08:32:35Portable AP chest, 1 viewLocation Code: [id number] HISTORY: R52: PAIN, UNSPECIFIEDCOMPARISON: NoneCOMMENT: The heart size is enlarged with central pulmonary congestion along with rightbasilar atelectasis or scarring. Small right effusion suggested. Osseousstructures are intact.IMPRESSION: Mild CHF with mild right basilar atelectasis or scarring with smalleffusion.
--- NOTE | 2019-06-15 08:37 | ER ---
Nurse's Notes [facility] Name: Unique Dial Age: 48 yrs Sex: Female : 1970 Arrival Date: 06/15/2019 Time: 07:48 Bed 5 Private MD: Diagnosis: Homelessness Presentation: 06/15 08:01 Presenting complaint: Patient states: I dont have money for food and i am coming here tw2 for food, i am homeless and i dont have any money for a month. Transition of care: patient was not received from another setting of care. Onset of symptoms was June 15, 2019. Risk Assessment: Do you want to hurt yourself or someone else? Patient reports no desire to harm self or others. Initial Sepsis Screen: Does the patient meet any 2 criteria? No. Patient's initial sepsis screen is negative. Does the patient have a suspected source of infection? No. Patient's initial sepsis screen is negative. Care prior to arrival: None. 08:01 Method Of Arrival: Ambulatory tw2 08:01 Acuity: YAMILET 5 tw2 Triage Assessment: 08:02 General: Appears in no apparent distress. unkempt, Behavior is calm, cooperative, tw2 appropriate for age. Pain: Denies pain. 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 - Social history:: Patient uses Smoking status: . - Ebola Screening: : Patient denies travel to an Ebola-affected area in the 21 days before illness onset. Screenin:15 Abuse screen: Denies threats or abuse. Nutritional screening: No deficits noted. tw2 Tuberculosis screening: No symptoms or risk factors identified. Fall Risk None identified. Assessment: 08:04 Reassessment: Dr. Lester notified of pts condition and request for food at this time. tw2 [address] and chips with drink given, Charge nurse notified and requests bus pass for pt, list of community resources given for food and temporary housing at this time. 08:15 General: Appears in no apparent distress. unkempt, Behavior is calm, cooperative, tw2 appropriate for age. Pain: Denies pain. Neuro: Level of Consciousness is awake, alert, obeys commands, Oriented to person, place, time, situation. Cardiovascular: Patient's skin is warm and dry. Respiratory: Airway is patent Respiratory effort is even, unlabored, Respiratory pattern is regular, symmetrical. GI: No signs and/or symptoms were reported involving the gastrointestinal system. : No signs and/or symptoms were reported regarding the genitourinary system. EENT: No signs and/or symptoms were reported regarding the EENT system. Derm: No signs and/or symptoms reported regarding the dermatologic system. Musculoskeletal: Range of motion: intact in all extremities. 08:46 Reassessment: Patient appears in no apparent distress at this time. No changes from tw2 previously documented assessment. Patient and/or family updated on plan of care and expected duration. Pain level reassessed. Patient is alert, oriented x 3, equal unlabored respirations, skin warm/dry/pink. Vital Signs: 08:02 BP 140 / 66; Pulse 80; Resp 18; Temp 97.8; Pulse Ox 98% on R/A; Weight 104.33 kg; tw2 Height 5 ft. 8 in. (172.72 cm); Pain 0/10; 08:46 BP 132 / 62; Pulse 66; Resp 17; Pulse Ox 99% on R/A; tw2 08:02 Body Mass Index 34.97 (104.33 kg, 172.72 cm) tw2 ED Course: 07:48 Patient arrived in ED. mr 07:54 Luisito Lester MD is Attending Physician. ma2 07:57 Luis A Barnes, PALMER is Primary Nurse. jl7 08:01 Triage completed. tw2 08:01 Arm band placed on. tw2 08:01 Bed in low position. Call light in reach. tw2 08:15 Elina Hill, RN is Primary Nurse. tw2 08:46 No provider procedures requiring assistance completed. Patient did not have IV access tw2 during this emergency room visit. Administered Medications: No medications were administered Outcome: 08:35 Discharge ordered by MD. randall2 08:46 Discharged to Unknown pt given list of resources for food and alf, pt given bus tw2 pass, 3 sandwiches, 3 fruit cups, and 3 drinks as well as personal items, toothbrush/paste, socks, and cleansing wipes 08:46 Condition: stable 08:46 Discharge instructions given to patient, Instructed on discharge instructions, follow up and referral plans. safety practices, resources given Demonstrated understanding of instructions, follow-up care. 08:48 Patient left the ED. tw2 Signatures: Martha Kohler mr Elina Hill, RN RN tw2 Luis A Barnes RN RN jl7 Luisito Lester MD MD ma2
--- NOTE | 2019-06-15 08:38 | EDPHYS ---
Physician Documentation [facility] Name: Unique Dial Age: 48 yrs Sex: Female : 1970 Arrival Date: 06/15/2019 Time: 07:48 Bed 5 Private MD: ED Physician Luisito Lester HPI: 06/15 07:57 This 48 yrs old Female presents to ER via Unassigned with complaints of ma2 Personal. 07:57 med screaned, has no medical complaint, states that she is cold outside and has no ma2 food. . 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 - Social history:: Patient uses Smoking status: . - Ebola Screening: : Patient denies travel to an Ebola-affected area in the 21 days before illness onset. Vital Signs: 08:02 BP 140 / 66; Pulse 80; Resp 18; Temp 97.8; Pulse Ox 98% on R/A; Weight 104.33 kg; tw2 Height 5 ft. 8 in. (172.72 cm); Pain 0/10; 08:46 BP 132 / 62; Pulse 66; Resp 17; Pulse Ox 99% on R/A; tw2 08:02 Body Mass Index 34.97 (104.33 kg, 172.72 cm) tw2 MDM: 07:54 Patient medically screened. ma2 Administered Medications: No medications were administered Disposition: 06/15/19 08:35 Discharged to Home. Impression: Homelessness. - Condition is Stable. - Medication Reconciliation Form, Thank You Letter, Antibiotic Education, Prescription Opioid Use form. - Follow up: Private Physician; When: Tomorrow; Reason: Continuance of care. Signatures: Elina Hill RN RN tw2 Luisito Lester MD MD ma2 Corrections: (The following items were deleted from the chart) 08:48 08:35 06/15/2019 08:35 Discharged to Home. Impression: Homelessness. Condition is tw2 Stable. Forms are Medication Reconciliation Form, Thank You Letter, Antibiotic Education, Prescription Opioid Use. Follow up: Private Physician; When: Tomorrow; Reason: Continuance of care. ma2
[2019-06-15 16:12] VITALS: BP 132/62; O2SAT 99
[2019-06-15 16:14] VITALS: TEMP 97.8
== END 2019-06-15 08:48 | disposition home or self-care (01) ==
LOC: ER 07:36
DX: Z59.0 Homelessness (principal); E78.5 Hyperlipidemia, unspecified; F41.8 Other specified anxiety disorders
CPT/HCPCS: 99281

== ENCOUNTER 2019-06-17 23:50 | Emergency (ER) | payer OTHER ==
--- OUTSIDE RECORDS SUMMARY | 2019-06-17 23:54 | XMS REPORT ---
:1970 [facility] Address [address] [place] [address] Care Team Providers Name Role Phone DR [...] Facility Department ID 2018-01-10 Inpatient KLEVER GIVENS [facility] [id number] 12:30:00 2017-08-22 Inpatient KLEVER GIVENS [facility] [id number] 10:30:00 2019-03-09 2019-03-09 Emergency WINTER TORO [facility] [id number] 10:42:00 12:25:00 2018-12-04 2018-12-04 Outpatient Errol KELLER [facility] [id number] 09:00:00 09:00:00 STALIN 2018-07-30 2018-07-30 Outpatient Errol KELLER [facility] [id number] 07:59:00 10:30:00 STALIN 2018-05-26 2018-05-26 Emergency FABIO WADSWORTH [facility] [id number] 12:50:00 14:10:00 2018-04-24 2018-04-24 Outpatient Errol KANG [facility] [id number] 08:45:00 08:45:00 CHAUNCEY 2018-03-15 2018-03-15 Outpatient Errol KANG, [facility] [id number] 13:00:00 13:00:00 CHAUNCEY 2018-03-01 2018-03-01 Emergency E NADER INGRAM [facility] [id number] 14:10:00 16:00:00 2018-02-25 2018-02-28 Inpatient E CARRIE [facility] [id number] 22:17:00 14:15:00 JOAQUIN 2017-10-23 2017-10-23 Emergency E WINTER INGRAM [facility] [id number] 16:59:00 19:50:00 2017-10-17 2017-10-17 Outpatient C KLEVER MIRANDA [facility] [id number] 09:59:00 23:59:00 2017-10-16 2017-10-16 Outpatient KLEVER GIVENS [facility] [id number] 10:59:00 23:59:00 2017-10-12 2017-10-13 Outpatient E EDEL [facility] [id number] 13:06:00 18:54:00 MEHJABIN Results Test Description Test [...] <=42 ALT (test code=31A) 29 IU/L <=78 [id number] 11:55:00 Test Item Value Reference Range Comments CPK (test code=32A) 275 IU/L 26-192 AMYLASE AND [id number] 11:55:00 Test Item Value Reference Range Comments AMYLASE (test code=10A) 32 U/L 28-100 LIPASE (test code=60A) 139 IU/L 73-393 TROPONIN [id number] 11:43:00 Test Item Value Reference Range Comments TROPONIN I (test code=A84) <0.015 ng/mL 0.000-0.045 DRUGS OF [id number] 11:40:00 Test Item Value Reference Range Comments [...] Barbiturates 200 ng/mL Opiates 2000 ng/mL SERUM [id number] 11:34:00 Test Item Value Reference Range Comments PREG SRM (test code=PGS) NEGATIVE NEGATIVE PRO TIME AND [id number] 11:33:00 Test Item Value Reference Range Comments [...] Code is ANTI-XA XR CHEST 1 VIEW [id number] 11:32:20EXAM: Portable chest x-rayDictation location: [id number]: Chest x-ray on 05/26/18INDICATION: chestpainDISCUSSION: Mild elevation [...] RBC MORPH (test code=RBCMOR) NORMAL COMPREHENSIVE METABOLIC [id number] 09:42:00 Test Item Value Reference Range Comments [...] code=31A) 28 IU/L <=78 PRO TIME AND [id number] 09:37:00 Test Item Value Reference Range Comments [...] NO RBC MORPH (test code=RBCMOR) NORMAL URINE [id number] 09:13:00 Test Item Value Reference Range Comments PREG UR (test code=PGU) NEGATIVE NEGATIVE BRAIN NATRIURETIC [id number] 13:43:00 Test Item Value Reference Range Comments proBNP (test code=PBNP) 155 pg/mL 0-125 AMYLASE AND [id number] 13:40:00 Test Item Value Reference Range Comments AMYLASE (test code=10A) 35 U/L 28-100 LIPASE (test code=60A) 197 IU/L 73-393 COMPREHENSIVE METABOLIC [id number] 13:40:00 Test Item Value Reference Range Comments [...] <=42 ALT (test code=31A) 30 IU/L <=78 [id number] 13:40:00 Test Item Value Reference Range Comments CPK (test code=32A) 297 IU/L 26-192 TROPONIN [id number] 13:40:00 Test Item Value Reference Range Comments TROPONIN I (test code=A84) <0.015 ng/mL 0.000-0.045 XR CHEST 1 VIEW [id number] 13:35:17Location code: A 1Chest 1 viewIndication: Chest.Comparison: 09/26/17. 03/01/18.Findings:The cardiac silhouette is magnified. Mediastinal structures are undisplaced. Nopleural effusion. Small scarring at the right base unchanged since 09/26/17.Lungs otherwise clear. Bone is unremarkable.Impression: No evidence of acute pathology.PRO TIME AND [id number] 13:29:00 Test Item Value Reference Range Comments [...] LMW Heparin. Order Code is ANTI-XA SERUM [id number] 13:25:00 Test Item Value Reference Range Comments [...] RBC MORPH (test code=RBCMOR) NORMAL BRAIN NATRIURETIC [id number] 15:06:00 Test Item Value Reference Range Comments proBNP (test code=PBNP) 448 pg/mL 0-125 CARDIAC [id number] 15:04:00 Test Item Value Reference Range Comments TROPONIN I (test code=A84) <0.015 ng/mL 0.000-0.045 CKMB (test code=A49) 2.9 ng/mL <=3.6 CPK (test code=32A) 180 IU/L 26-192 COMPREHENSIVE METABOLIC [id number] 15:02:00 Test Item Value Reference Range Comments [...] code=31A) 28 IU/L <=78 PRO TIME AND [id number] 14:53:00 Test Item Value Reference Range Comments [...] (test code=RBCMOR) NORMAL XR CHEST 1 VIEW [id number] 14:38:19Portable AP chest, 1 viewLocation Code: [id number] HISTORY: Chest painCOMPARISON: CT dated 02/26/2018 02/25/2018, 10/23/2017COMMENT: Mild atelectasis versus scarring within the right lung base is stable. Leftchest is clear. The cardiomediastinal silhouette is stable. The bones areintact.IMPRESSION: Stable chest with no acute abnormalityBASIC METABOLIC [id number] 05:24:00 Test Item Value Reference Range Comments [...] NO RBC MORPH (test code=RBCMOR) NORMAL CARDIAC [id number] 16:26:00 Test Item Value Reference Range Comments TROPONIN I (test code=A84) 0.158 ng/mL 0.000-0.045 CKMB (test code=A49) 3.1 ng/mL <=3.6 CPK (test code=32A) 177 IU/L 26-192 THYROID PANEL/SCREEN (TSH)2018-02-26 12:29:00 Test Item Value Reference Range Comments TSH (test code=A57) 0.878 uIU/mL 0.358-3.740 [id number] 12:14:00 Test Item Value Reference Range Comments Hb A1C % (test code=HBA) 5.3 % 4.2-6.3 BASIC METABOLIC [id number] 12:05:00 Test Item Value Reference Range Comments [...] CALCIUM (test code=09D) 8.1 mg/dL 8.3-9.5 LIPID [id number] 12:02:00 Test Item Value Reference Range Comments [...] NO RBC MORPH (test code=RBCMOR) NORMAL CARDIAC [id number] 05:57:00 Test Item Value Reference Range Comments TROPONIN I (test code=A84) 0.341 ng/mL 0.000-0.045 CKMB (test code=A49) 2.7 ng/mL <=3.6 CPK (test code=32A) 154 IU/L 26-192 CT PE [id number] 00:34:43AFTER HOURS SERVICE ON: 02/26/2018 12:30 AMCT Scan of the Chest With ContrastLocation Code [id number]: Chest painTechnique: Scans were performed on a [...] can be further evaluated with ultrasound.BRAIN NATRIURETIC [id number] 23:25:00 Test Item Value Reference Range Comments proBNP (test code=PBNP) 287 pg/mL 0-125 COMPREHENSIVE METABOLIC [id number] 23:21:00 Test Item Value Reference Range Comments [...] ALT (test code=31A) 26 IU/L <=78 CARDIAC [id number] 23:21:00 Test Item Value Reference Range Comments TROPONIN I (test code=A84) 0.358 ng/mL 0.000-0.045 CKMB (test code=A49) 3.6 ng/mL <=3.6 CPK (test code=32A) 205 IU/L 26-192 [id number] 23:19:00 Test Item Value Reference Range Comments D-DIMER (test code=DDI) 293 ng/mL D-DU 0-234 D-DIMER COMMENT (test *Level to rule out DVT or PE: code=DDCOM) <235 ng/mL D-DU* PRO TIME AND [id number] 23:18:00 Test Item Value Reference Range Comments [...] Code is ANTI-XA XR CHEST 1 VIEW [id number] 23:05:48LOCATION: V20 EXAM: XR CHEST 1 VIEW PORTABLEHISTORY: [id number]: Chest pain TECHNIQUE: Frontal view ofthe chest.COMPARISON: [...] NO RBC MORPH (test code=RBCMOR) NORMAL CARDIAC [id number] 18:52:00 Test Item Value Reference Range Comments TROPONIN I (test code=A84) <0.015 ng/mL 0.000-0.045 CKMB (test code=A49) 3.4 ng/mL <=3.6 CPK (test code=32A) 206 IU/L 26-192 BRAIN NATRIURETIC [id number] 18:50:00 Test Item Value Reference Range Comments proBNP (test code=PBNP) 178 pg/mL 0-125 AMYLASE AND [id number] 18:50:00 Test Item Value Reference Range Comments AMYLASE (test code=10A) 36 U/L 28-100 LIPASE (test code=60A) 208 IU/L 73-393 COMPREHENSIVE METABOLIC [id number] 18:50:00 Test Item Value Reference Range Comments [...] ALT (test code=31A) 29 IU/L <=78 SERUM [id number] 18:43:00 Test Item Value Reference Range Comments PREG SRM (test code=PGS) NEGATIVE NEGATIVE PRO TIME AND [id number] 18:41:00 Test Item Value Reference Range Comments [...] Heparin. Order Code is ANTI-XA URINALYSIS WITH [id number] 18:41:00 Test Item Value Reference Range Comments [...] code=MDIFF) NO NO XR CHEST 1 VIEW [id number] 17:58:39STUDY: Chest radiographHISTORY: Chest pain.COMPARISON: 10/12/17TECHNIQUE: Frontal view of the chest.LOCATION: [id number]:An electronic device projects over the left chest, not seen previously.The cardiac silhouette is unremarkable. Again seen is a curvilinear density atthe right lung base with tentingof the right hemidiaphragm. There is nopleural effusion, pneumothorax or focal consolidation.No acute osseous abnormalities are identified.IMPRESSION:1. No radiographic evidence for acute pulmonary abnormality.2. Similar appearance of right basilar atelectasis/ fibrosis.BASIC METABOLIC [id number] 04:08:00 Test Item Value Reference Range Comments [...] NO RBC MORPH (test code=RBCMOR) NORMAL CARDIAC [id number] 23:12:00 Test Item Value Reference Range Comments TROPONIN I (test code=A84) <0.015 ng/mL 0.000-0.045 CKMB (test code=A49) 3.7 ng/mL <=3.6 CPK (test code=32A) 192 IU/L 26-192 CARDIAC [id number] 15:14:00 Test Item Value Reference Range Comments TROPONIN I (test code=A84) <0.015 ng/mL 0.000-0.045 CKMB (test code=A49) 4.4 ng/mL <=3.6 CPK (test code=32A) 208 IU/L -192 CT PE [id number] 09:57:42CT CHEST WITH CONTRAST, PE PROTOCOL:Location code: [id number] HISTORY: Shortness of breath , chest painCOMPARISON: [...] theright lower lobeand right lung base. URINE [id number] 09: 21:00 Test Item Value Reference Range Comments PREG UR (test code=PGU) NEGATIVE NEGATIVE CARDIAC [id number] 09:00:00 Test Item Value Reference Range Comments TROPONIN I (test code=A84) <0.015 ng/mL 0.000-0.045 CKMB (test code=A49) 5.4 ng/mL <=3.6 CPK (test code=32A) 238 IU/L 26-192 DRUGS OF [id number] 08:58:00 Test Item Value Reference Range Comments [...] ng/mL Barbiturates 200 ng/mL Opiates 2000 ng/mL [id number] 08:56:00 Test Item Value Reference Range Comments D-DIMER (test code=DDI) 475 ng/mL D-DU 0-234 D-DIMER COMMENT (test *Level to rule out DVT or PE: code=DDCOM) <235 ng/mL D-DU* COMPREHENSIVE METABOLIC [id number] 08:56:00 Test Item Value Reference Range Comments [...] <=42 ALT (test code=31A) 30 IU/L <=78 [id number] 08:53:00 Test Item Value Reference Range Comments [...] (test code=LEUK) NEGATIVE NEGATIVE PRO TIME AND [id number] 08:48:00 Test Item Value Reference Range Comments [...] (test code=RBCMOR) NORMAL XR CHEST 1 VIEW [id number] 08:32:35Portable AP chest, 1 viewLocation Code: C2ROBEJIEX HISTORY: R52: PAIN, UNSPECIFIEDCOMPARISON: NoneCOMMENT: The heart size is enlarged with central pulmonary congestion along with rightbasilar atelectasis or scarring. Small right effusion suggested. Osseousstructures are intact.IMPRESSION: Mild CHF with mild right basilar atelectasis or scarring with smalleffusion.
[2019-06-18] MEDS ORDERED: ONDANSETRON 4 MG/2 ML VIAL ONE (01:08)
[2019-06-18 02:53] LABS: Urine Blood TRACE (NEG); Urine Glucose NEGATIVE (NEG); Urine Protein TRACE (NEG); Urine Specific Gravity >1.030 (1.005-1.030)
[2019-06-18 02:53] LABS: Absolute Lymphocytes (CBC) 2.9 K/uL (0.7-4.9); Basophils % 1.1 % (0-1.3); Hematocrit 38.8 % (36.0-45.0); Lymphocytes % 35.4 % (15.3-44.8); MPV 8.1 fL (7.6-11.3); RBC Red Blood Cell Count 4.64 M/uL (3.86-4.86)
[2019-06-18 03:04] LABS: Albumin 3.4 g/dL (3.4-5.0); Bilirubin Total 0.2 mg/dL (0.2-1.0); Potassium 3.8 mmol/L (3.5-5.1); Protein, Total 6.8 g/dL (6.4-8.2)
--- NOTE | 2019-06-18 03:17 | ER ---
Nurse's Notes [facility] Name: Unique Dial Age: 48 yrs Sex: Female : 1970 Arrival Date: 06/17/2019 Time: 23:52 Bed 5 Private MD: Diagnosis: Vomiting, unspecified Presentation: 06/18 00:13 Presenting complaint: Patient states: "I've been vomiting for about 2 months and I lp1 think my sleep apnea is getting to me, I was falling asleep when I was riding my bike here, and I'm having some pressure in my chest"; Patient states she has been living on the streets since there are drugs around at her home. Transition of care: patient was not received from another setting of care. Onset of symptoms was June 18, 2019. Risk Assessment: Do you want to hurt yourself or someone else? Patient reports no desire to harm self or others. Initial Sepsis Screen: Does the patient meet any 2 criteria? No. Patient's initial sepsis screen is negative. Does the patient have a suspected source of infection? No. Patient's initial sepsis screen is negative. Care prior to arrival: None. 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 - Social history:: Smoking status: Patient uses tobacco products, smokes one pack cigarettes per day. - Ebola Screening: : No symptoms or risks identified at this time. Screenin:18 Abuse screen: Denies threats or abuse. Denies injuries from another. Nutritional lp1 screening: No deficits noted. Tuberculosis screening: No symptoms or risk factors identified. Fall Risk None identified. Assessment: 00:16 General: Appears in no apparent distress. Behavior is calm, cooperative. Pain: lp1 Complains of pain in chest Pain does not radiate. Pain currently is 6 out of 10 on a pain scale. Quality of pain is described as pressure, Pain began weeks ago. Neuro: Level of Consciousness is awake, alert, obeys commands, Oriented to person, place, situation, Gait is steady. Cardiovascular: Patient's skin is warm and dry. Respiratory: Respiratory effort is even, unlabored, Breath sounds are clear bilaterally. GI: Abdomen is non-distended, Reports vomiting. : No signs and/or symptoms were reported regarding the genitourinary system. EENT: Poor dentition noted. Derm: Skin is intact, Skin is dry, Skin is normal. Musculoskeletal: No deficits noted. 01:30 Reassessment: Patient appears in no apparent distress at this time. No changes from lp1 previously documented assessment. 02:12 Reassessment: Patient states nausea decreased, given juice and sandwich at this time. lp1 03:16 Reassessment: Patient and/or family updated on plan of care and expected duration. Pain lp1 level reassessed. Patient tolerated food. Vital Signs: 00:15 BP 135 / 80; Pulse 82; Resp 18; Temp 98.3(O); Pulse Ox 99% on R/A; Weight 104.33 kg lp1 (R); Height 5 ft. 10 in. (177.80 cm); Pain 6/10; 01:15 BP 128 / 52; Pulse 65; Resp 18; Pulse Ox 97% on R/A; lp1 02:13 BP 114 / 56; Pulse 68; Resp 18; Pulse Ox 97% on R/A; lp1 03:15 BP 113 / 52; Pulse 61; Resp 18; Pulse Ox 97% on R/A; lp1 00:15 Body Mass Index 33.00 (104.33 kg, 177.80 cm) lp1 ED Course: 06/17 23:52 Patient arrived in ED. ag3 06/18 00:08 Bebeto Barahona NP is PHCP. pm1 00:08 Tru Carreno MD is Attending Physician. pm1 00:13 Maru Ziegler, PALMER is Primary Nurse. lp1 00:15 Triage completed. lp1 00:15 Arm band placed on. lp1 00:18 Patient has correct armband on for positive identification. Placed in gown. lp1 00:45 Inserted saline lock: 20 gauge in right antecubital area, using aseptic technique. lp1 01:41 No provider procedures requiring assistance completed. lp1 03:29 IV discontinued, No redness/swelling at site. Pressure dressing applied. lp1 Administered Medications: 01:23 Drug: Zofran 4 mg Route: IVP; Site: right antecubital; lp1 02:08 Follow up: Response: Marked relief of symptoms; Nausea is decreased lp1 Outcome: 03:16 Discharge ordered by MD. pm1 03:29 Discharged to home ambulatory. lp1 03:29 Condition: good 03:29 Discharge instructions given to patient, Instructed on discharge instructions, follow up and referral plans. medication usage, Demonstrated understanding of instructions, follow-up care, medications, Prescriptions given X 1. 03:29 Patient left the ED. lp1 Signatures: Maru Ziegler RN RN lp1 Bebeto Barahona NP CASINO SURVEILLANCE OFFICER pm1 Ramya Berger 3
--- NOTE | 2019-06-18 03:17 | EDPHYS ---
Physician Documentation [facility] Name: Unique Dial Age: 48 yrs Sex: Female : 1970 Arrival Date: 06/17/2019 Time: 23:52 Bed 5 Private MD: ED Physician Tru Carreno HPI: 06/18 00:36 This 48 yrs old Female presents to ER via Ambulatory with complaints of pm1 Vomiting. 00:36 The patient presents to the emergency department with vomiting, 2 times since the onset pm1 of symptoms. Onset: The symptoms/episode began/occurred today. Possible causes: unknown. The symptoms are aggravated by nothing. The symptoms are alleviated by nothing. Associated signs and symptoms: Pertinent negatives:. Severity of symptoms: Pain is currently a 0 / 10. The patient has been recently seen at the [facility] Emergency Department, 3 days ago and diagnosed with homelessness. Patient came to the ER asking for food. 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 - Social history:: Smoking status: Patient uses tobacco products, smokes one pack cigarettes per day. - Ebola Screening: : No symptoms or risks identified at this time. ROS: 00:36 Constitutional: Negative for fever, chills, and weight loss, Eyes: Negative for injury, pm1 pain, redness, and discharge, ENT: Negative for injury, pain, and discharge, Neck: Negative for injury, pain, and swelling, Cardiovascular: Negative for chest pain, palpitations, and edema, Respiratory: Negative for shortness of breath, cough, wheezing, and pleuritic chest pain. 00:36 Back: Negative for injury and pain, : Negative for injury, bleeding, discharge, and swelling, MS/Extremity: Negative for injury and deformity, Skin: Negative for injury, rash, and discoloration, Neuro: Negative for headache, weakness, numbness, tingling, and seizure. 00:36 Abdomen/GI: Positive for nausea and vomiting, Negative for abdominal pain, diarrhea, constipation. Exam: 00:36 Constitutional: This is a well developed, well nourished patient who is awake, alert, pm1 and in no acute distress. Head/Face: Normocephalic, atraumatic. Chest/axilla: Normal chest wall appearance and motion. Nontender with no deformity. No lesions are appreciated. Cardiovascular: Regular rate and rhythm with a normal S1 and S2. No gallops, murmurs, or rubs. Normal PMI, no JVD. No pulse deficits. Respiratory: Lungs have equal breath sounds bilaterally, clear to auscultation and percussion. No rales, rhonchi or wheezes noted. No increased work of breathing, no retractions or nasal flaring. 00:36 Neck: Trachea midline, no thyromegaly or masses palpated, and no cervical lymphadenopathy. Supple, full range of motion without nuchal rigidity, or vertebral point tenderness. No Meningismus. Back: No spinal tenderness. No costovertebral tenderness. Full range of motion. Skin: Warm, dry with normal turgor. Normal color with no rashes, no lesions, and no evidence of cellulitis. MS/ Extremity: Pulses equal, no cyanosis. Neurovascular intact. Full, normal range of motion. 00:36 Abdomen/GI: Inspection: abdomen appears normal, Bowel sounds: normal, Palpation: abdomen is soft and non-tender, in all quadrants, mass, is not appreciated, rebound tenderness, is not appreciated. 00:36 Neuro: Orientation: is normal, Motor: is normal, moves all fours. Vital Signs: 00:15 BP 135 / 80; Pulse 82; Resp 18; Temp 98.3(O); Pulse Ox 99% on R/A; Weight 104.33 kg lp1 (R); Height 5 ft. 10 in. (177.80 cm); Pain 6/10; 01:15 BP 128 / 52; Pulse 65; Resp 18; Pulse Ox 97% on R/A; lp1 02:13 BP 114 / 56; Pulse 68; Resp 18; Pulse Ox 97% on R/A; lp1 03:15 BP 113 / 52; Pulse 61; Resp 18; Pulse Ox 97% on R/A; lp1 00:15 Body Mass Index 33.00 (104.33 kg, 177.80 cm) lp1 MDM: 00:08 Patient medically screened. joao 03:01 Data reviewed: vital signs. Data interpreted: Pulse oximetry: on room air is 97 %. pm1 Interpretation: normal. 03:01 ED course: Patient ate sandwich without any vomiting. pm1 03:16 Counseling: I had a detailed discussion with the patient and/or guardian regarding: the pm1 historical points, exam findings, and any diagnostic results supporting the discharge/admit diagnosis, lab results, the need for outpatient follow up, to return to the emergency department if symptoms worsen or persist or if there are any questions or concerns that arise at home. 06/18 00:36 Order name: CBC with Diff; Complete Time: 02:57 pm1 06/18 00:36 Order name: CMP; Complete Time: 03:12 pm1 06/18 00:36 Order name: IV Saline Lock; Complete Time: 01:14 pm1 06/18 01:07 Order name: Urine Dipstick--Ancillary (enter results); Complete Time: 02:57 mt 06/18 01:07 Order name: Urine --Ancillary (enter results); Complete Time: 02:57 mt 06/18 00:36 Order name: Urine Dipstick-Ancillary (obtain specimen); Complete Time: 01:14 pm1 06/18 00:36 Order name: Urine Test (obtain specimen); Complete Time: 01:14 pm1 Administered Medications: 01:23 Drug: Zofran 4 mg Route: IVP; Site: right antecubital; lp1 02:08 Follow up: Response: Marked relief of symptoms; Nausea is decreased lp1 Disposition: 06/18/19 03:16 Discharged to Home. Impression: Vomiting, unspecified. - Condition is Stable. - Discharge Instructions: Nausea and Vomiting, Adult. - Prescriptions for Zofran 4 mg Oral Tablet - take 1 tablet by ORAL route every 12 hours As needed; 20 tablet. - Medication Reconciliation Form, Thank You Letter, Antibiotic Education, Prescription Opioid Use form. - Follow up: Emergency Department; When: As needed; Reason: Worsening of condition. Follow up: Private Physician; When: 2 - 3 days; Reason: Recheck today's complaints, Continuance of care, Re-evaluation by your physician. - Problem is new. - Symptoms have improved. Addendum: 06/19/2019 18:39 Co-signature as Attending Physician, Tru Carreno MD I agree with the assessment and c saravia plan of care. Signatures: Dispatcher [employer] EDMI Tru Carreno MD MD cha Pena, Laura, RN RN lp1 Bebeto Barahona, CHIEF ENGINEERING DIVISION CHIEF ENGINEERING DIVISION pm1 Corrections: (The following items were deleted from the chart) 06/18 03:29 03:16 06/18/2019 03:16 Discharged to Home. Impression: Vomiting, unspecified. Condition lp1 is Stable. Forms are Medication Reconciliation Form, Thank You Letter, Antibiotic Education, Prescription Opioid Use. Follow up: Emergency Department; When: As needed; Reason: Worsening of condition. Follow up: Private Physician; When: 2 - 3 days; Reason: Recheck today's complaints, Continuance of care, Re-evaluation by your physician. Problem is new. Symptoms have improved. pm1
[2019-06-18 04:32] VITALS: TEMP 98.3
[2019-06-18 04:33] VITALS: O2SAT 97
[2019-06-18 04:36] VITALS: BP 113/52
== END 2019-06-18 03:29 | disposition home or self-care (01) ==
LOC: ER 23:50
DX: R11.2 Nausea with vomiting, unspecified (principal); I10 Essential (primary) hypertension; F17.210 Nicotine dependence, cigarettes, uncomplicated
CPT/HCPCS: 85025; 36415; 81025; 81003; 80053; 96374; 99283; J2405